=== PATIENT | male | born 1970 | race American Indian/Alaskan Native ===

== ENCOUNTER 2018-10-20 08:58 | Emergency (ER) | payer MEDICAID ==
[2018-10-20 08:59] VITALS: BMI 39.5
[2018-10-20 09:07] VITALS: BP 153/101; PULSE 84; RESP 20; TEMP 97.7; O2SAT 100
--- NOTE | 2018-10-20 09:12 | C.PDOC ---
History Of Present Illness 48 y/o homeless male brought to ED by EMS after police kicked him out of path station stating "he cannot stay here on thanks giving because he smells" as per EMS. Patient is ambulatory at ED and noted to have weeping from wrapped bilateral legs. Patient has no physical complaints at this time. Time Seen by Provider: 10/20/18 09:09 Chief Complaint (Nursing): Lower Extremity Problem/Injury History Per: Patient, EMS History/Exam Limitations: no limitations Onset/Duration Of Symptoms: Hrs Current Symptoms Are (Timing): Still Present Past Medical History Reviewed: Historical Data, Nursing Documentation, Vital Signs Vital Signs: Last Vital Signs Temp 97.7 F 10/20/18 09:06 Pulse 84 10/20/18 09:06 Resp 20 10/20/18 09:06 BP 153/101 H 10/20/18 09:06 Pulse Ox 100 10/20/18 09:06 - Medical History PMH: Depression (NOT DIAGNOSED), Diabetes, Schizophrenia Surgical History: No Surg Hx Family History: States: No Known Family Hx - Social History Hx Tobacco Use: No Hx Alcohol Use: Yes Hx Substance Use: No - Immunization History Hx Tetanus Toxoid Vaccination: No Hx Influenza Vaccination: No Hx Pneumococcal Vaccination: No Review Of Systems Constitutional: Negative for: Fever, Chills Cardiovascular: Negative for: Chest Pain Respiratory: Negative for: Cough, Shortness of Breath Gastrointestinal: Negative for: Nausea, Vomiting Musculoskeletal: Positive for: Leg Pain Skin: Negative for: Rash Psych: Negative for: Suicidal ideation, Withdrawal Physical Exam - Physical Exam Appears: Non-toxic, No Acute Distress, Unkempt Skin: Warm, Dry, No Rash, Other (wrap removed, right lower leg chronic granulated pink tissue with good blood flow. Left lower leg old scarring. No infection noted ) Head: Atraumatic, Normacephalic Eye(s): bilateral: Normal Inspection Oral Mucosa: Moist Neck: Normal ROM, Supple Cardiovascular: Rhythm Regular Respiratory: Normal Breath Sounds, No Rales, No Rhonchi, No Wheezing Gastrointestinal/Abdominal: Soft, No Tenderness, No Guarding, No Rebound Extremity: Normal ROM, Capillary Refill (<2 seconds), No Deformity, Swelling (mild on bilateral lower legs) Pulses: Left Dorsalis Pedis: Normal, Right Dorsalis Pedis: Normal Neurological/Psych: Oriented x3, Normal Speech, Other (no acute intox, calm ) ED Course And Treatment O2 Sat by Pulse Oximetry: 100 (RA) Pulse Ox Interpretation: Normal Disposition Counseled Patient/Family Regarding: Diagnosis, Need For Followup - Disposition Referrals: [facility] [Outside] [facility] [Outside] Disposition: HOME/ ROUTINE Disposition Time: 10:30 Condition: IMPROVED Instructions: Wound Care (DC) Forms: [employer] (Hungarian) - Clinical Impression Clinical Impression: Chronic wound of extremity, Homeless - Scribe Statement The provider has reviewed the documentation as recorded by the Scribmaverick Jaramillo All medical record entries made by the Germaineibmaverick were at my direction and personally dictated by me. I have reviewed the chart and agree that the record accurately reflects my personal performance of the history, physical exam, medical decision making, and the department course for this patient. I have also personally directed, reviewed, and agree with the discharge instructions and disposition.
== END 2018-10-20 13:22 | disposition home or self-care (01) ==
LOC: C.ER 08:58
DX: S80.921A Unspecified superficial injury of right lower leg, initial encounter (principal); X58.XXXA Exposure to other specified factors, initial encounter; Z59.0 Homelessness

== ENCOUNTER 2019-04-18 19:53 | Inpatient (IN) | payer MEDICAID ==
[2019-04-18 19:54] VITALS: BMI 38.2
--- NOTE | 2019-04-18 21:04 | C.PDOC ---
History Of Present Illness Homeless patient presents with severe malodorous legs, complaining of pain. States he has chronic venous stasis, as been seen here for similar complaints in the past , but never to this level of neglect. Upon undressing the patient, the wounds were infested with numerous maggots Time Seen by Provider: 04/18/19 21:03 Chief Complaint (Nursing): Abnormal Skin Integrity Past Medical History Reviewed: Historical Data, Nursing Documentation, Vital Signs Primary Care Provider: Non [facility] Provider, - Medical History PMH: Depression, Diabetes, Schizophrenia Family History: States: No Known Family Hx - Social History Hx Tobacco Use: No Hx Alcohol Use: Yes Hx Substance Use: No - Immunization History Hx Tetanus Toxoid Vaccination: No Hx Influenza Vaccination: Yes Hx Pneumococcal Vaccination: No Physical Exam - Physical Exam Appears: Non-toxic Skin: Warm, Dry, Other Head: Normacephalic Eye(s): bilateral: Normal Inspection Nose: Normal Oral Mucosa: Dry Teeth: Other (popor dentition) Neck: Supple Chest: Symmetrical Cardiovascular: Rhythm Regular Respiratory: No Rales, Rhonchi, No Wheezing Gastrointestinal/Abdominal: Soft, No Tenderness, Distention, Other (obese) Back: No CVA Tenderness Extremity: Tenderness, Pedal Edema, Other (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 b/l great toe nails avulsed. ) Extremity: Bilateral: Painful To Bear Weight Pulses: Left Dorsalis Pedis: Normal, Right Dorsalis Pedis: Normal Neurological/Psych: Oriented x3 Gait: With Assistance ED Course And Treatment - Laboratory Results Result Diagrams: 04/19/19 00:46 04/19/19 00:46 ECG: Interpreted By Me, Viewed By Me ECG Rhythm: Nonspecific Changes Pulse Ox Interpretation: Normal - Radiology CXR: Interpreted by Me, Viewed By Me CXR Interpretation: No: Infiltrates, Fracture, Pnemothorax Progress Note: spoke with podiatry. will come and see the pt. podiatry at bedside,. cleaned and dressed the wounds Disposition Discussed With : Db Knight Comment: accepted the pt onhis service and took over the care at 2AM Doctor Will See Patient In The: Hospital Counseled Patient/Family Regarding: Studies Performed, Diagnosis - Disposition Disposition: HOSPITALIZED Disposition Time: 21:03 Condition: GUARDED Forms: [employer] (Italian) - POA Present On Arrival: Poor Glycemic Control - Clinical Impression Clinical Impression: Skin ulcer, Cellulitis, Chronic wound of extremity, Venous stasis dermatitis of both lower extremities Decision To Admit - Pt Status Changed To: Hospital Disposition Of: Inpatient - Admit Certification Admit to Inpatient:: After my assessment, the patient will require hospitalization for at least two midnights. This is because of the severity of symptoms shown, intensity of services needed, and/or the medical risk in this patient being treated as an outpatient. - InPatient: Physician Admission Certification: I certify that this patient requires 2 or more midnights of care for the following reason:: After my assessment, the patient will require hospitalization for at least two midnights. This is because of the severity of symptoms shown, intensity of services needed, and/or the medical risk in this patient being treated as an outpatient. - . Bed Request Type: Regular Admitting Physician: Db Knight Patient Diagnosis: Skin ulcer, Cellulitis, Chronic wound of extremity, Venous stasis dermatitis of both lower extremities
[2019-04-18] MEDS ORDERED: Sodium Chloride 0.9% 1,000 ML IV ONE (22:41)
[2019-04-18] MEDS ORDERED: Piperacillin/Tazobact 3.375 GM in Sodium Chloride 100 ML IVPB STA (22:41)
[2019-04-19 00:52] LABS: VENOUS BLOOD GAS BASE EXCESS -1.2 mmol/L (0.0-2.0); VENOUS BLOOD GAS PCO2 51 mmHg (40-60); VENOUS BLOOD GAS PO2 21 mm/Hg (30-55); VENOUS BLOOD PH 7.31 (7.32-7.43)
[2019-04-19 00:58] LABS: BASO # 0.1 K/uL (0.0-0.2); BASO % 0.5 % (0.0-2.0); EOS # 0.2 K/uL (0.0-0.7); EOS % 1.5 % (0.0-4.0); HEMOGLOBIN 10.2 g/dL (12.0-18.0); LYMPH # 1.6 K/uL (1.0-4.3); LYMPH % 12.3 % (20.0-40.0); MEAN CORPUSCULAR HGB CONC 31.6 g/dL (33.0-37.0); MEAN PLATELET VOLUME 6.7 fL (7.2-11.7); MONO # 1.1 K/uL (0.0-0.8); MONO % 8.5 % (0.0-10.0); NEUT # 10.3 K/uL (1.8-7.0); NEUT % 77.2 % (50.0-75.0); RBC 4.23 Mil/uL (4.40-5.90); RED CELL DISTRIBUTION WIDTH 18.2 % (11.5-14.5); WHITE BLOOD COUNT 13.3 K/uL (4.8-10.8)
[2019-04-19] MEDS ORDERED: Piperacillin/Tazobact 3.375 gm 100 ML IVPB ONE (01:21)
[2019-04-19] MEDS ORDERED: Sodium Chloride 0.9% 1,000 ML ONE (01:21)
[2019-04-19 01:22] LABS: INR 1.5; PARTIAL THROMBOPLASTIN TIME 39.2 SECONDS (21-34); PROTHROMBIN TIME 16.8 SECONDS (9.7-12.2)
[2019-04-19 01:26] LABS: ALB/GLOB RATIO 0.7 (1.0-2.1); ALBUMIN 3.5 g/dL (3.5-5.0); AST/SGOT 21 U/L (17-59); BLOOD UREA NITROGEN 17 mg/dL (9-20); CALCIUM 8.6 mg/dl (8.6-10.4); GFR NON-AFRICAN AMERICAN 54
[2019-04-19 01:32] LABS: ALT/SGPT < 6 U/L (21-72)
--- NOTE | 2019-04-19 06:52 | CP.PCM.CON ---
History of Present Illness - History of Present Illness History of Present Illness: Podiatry consult note for Dr. Fountain, 48 y/o male homeless patient with PMHx of Diabetes, Depression and Schizophrenia was seen and evaluated in the [facility] ED for chronic Bilateral Lower Extremity Wounds with maggots as well as trench foot bilaterally. Patient states he has been to the ED several times for similar complaints, however, patient reports this is the worst it has been. Patient has history of chronic venous stasis and in the past has been treated with Unna Boots. Patient complains of a fever, but denies nausea, vomiting, shortness of breath, chest pain. Patient states he has a PMD, however, unable to remember the name. Patient is a poor historian and states he wants a Assistant Professor Of English for future care. Patient past medical and surgical history unclear. As per previous charting, patient is a diabetic. No known home medications Review of Systems - Review of Systems All systems: reviewed and no additional remarkable complaints except Review of Systems: As per HPI Past Patient History - Infectious Disease Hx of Infectious Diseases: None - Past Medical History & Family History Past Medical History?: Yes - Past Social History Smoking Status: Unknown If Ever Smoked - CARDIAC Hx Cardiac Disorders: No - PULMONARY Hx Respiratory Disorders: No - NEUROLOGICAL Hx Neurological Disorder: No - HEENT Hx HEENT Problems: No - RENAL Hx Chronic Kidney Disease: No - ENDOCRINE/METABOLIC Hx Endocrine Disorders: Yes Hx Diabetes Mellitus Type 2: Yes Other/Comment: DIABETES--denies - HEMATOLOGICAL/ONCOLOGICAL Hx Blood Disorders: No - INTEGUMENTARY Hx Dermatological Problems: Yes Hx Cellulitis: Yes (RLE) - MUSCULOSKELETAL/RHEUMATOLOGICAL Hx Musculoskeletal Disorders: No Hx Falls: No - GASTROINTESTINAL Hx Gastrointestinal Disorders: No - GENITOURINARY/GYNECOLOGICAL Hx Genitourinary Disorders: No - PSYCHIATRIC Hx Psychophysiologic Disorder: Yes Hx Depression: Yes Hx Schizophrenia: Yes Hx Substance Use: No - SURGICAL HISTORY Hx Surgeries: Yes Hx Amputation: Yes (R HAND) - ANESTHESIA Hx Anesthesia: Yes Hx Anesthesia Reactions: No Hx Malignant Hyperthermia: No Meds Allergies/Adverse Reactions: Allergies Allergy/AdvReac Type Severity Reaction Status Date / Time No Known Allergies Allergy Verified 04/18/19 20:14 - Medications Medications: Current Medications Heparin Sodium (Porcine) (Heparin) 5,000 units SC BID [facility] Piperacillin Sod/Tazobactam Sod (Zosyn 3.375 Gm Iv Premix) 3.375 gm in 50 mls @ 100 mls/hr IVPB Q8H [facility]; Protocol Ibuprofen (Motrin Tab) 600 mg PO Q6 PRN PRN Reason: Pain, moderate (4-7) Last Admin: 04/19/19 05:15 Dose: 600 mg Physical Exam - Constitutional Appears: Toxic, No Acute Distress, Unkempt - Head Exam Head Exam: ATRAUMATIC, NORMOCEPHALIC - ENT Exam ENT Exam: Mucous Membranes Dry - Extremities Exam Extremities exam: Positive for: joint swelling, pedal edema, tenderness Additional comments: Bilateral Lower Extremity exam VASC: DP and PT 1/4 faintly palpable likely secondary to the swelling, TG warm to warm, pitting pedal edema noted NEURO: grossly intact DERM: extensive chronic venous stasis ulcers noted circumferentially to bilateral lower extremities, ulcerations down to the subcutaneous layer with mixef fibrogranular base, positive malodor, no drainage, no purulence, no probe to bone, no tunneling or tracking, numerous maggots noted in the interspaced, with significant interdigital maceration, signs of trench foot also noted with m aceration to the feet and posterior heels Results - Vital Signs Recent Vital Signs: Last Vital Signs Temp 102 F H 04/19/19 04:21 Pulse 113 H 04/19/19 04:21 Resp 22 04/19/19 04:21 BP 127/68 04/19/19 04:21 Pulse Ox 97 04/19/19 04:21 - Labs Result Diagrams: 04/19/19 00:46 04/19/19 00:46 Labs: Laboratory Results - last 24 hr 04/19/19 04/19/19 04/19/19 00:37 00:46 00:46 WBC 13.3 H D RBC 4.23 L Hgb 10.2 L Hct 32.1 L MCV 76.0 L D MCH 24.0 L MCHC 31.6 L RDW 18.2 H Plt Count 686 H D MPV 6.7 L Neut % (Auto) 77.2 H Lymph % (Auto) 12.3 L [place] % (Auto) 8.5 Eos % (Auto) 1.5 Baso % (Auto) 0.5 Neut # (Auto) 10.3 H Lymph # (Auto) 1.6 [place] # (Auto) 1.1 H Eos # (Auto) 0.2 Baso # (Auto) 0.1 PT 16.8 H INR 1.5 APTT 39.2 H pO2 21 L VBG pH 7.31 L VBG pCO2 51 VBG HCO3 22.1 VBG Total CO2 27.3 VBG O2 Sat (Calc) 29.5 L VBG Base Excess -1.2 L VBG Potassium 4.0 Sodium 134.0 Chloride 101.0 Glucose 149 H Lactate 1.9 Potassium Carbon Dioxide Anion Gap BUN Creatinine Est GFR ( Amer) Est GFR (Non-Af Amer) Random Glucose Calcium Magnesium Total Bilirubin AST ALT Alkaline Phosphatase Total Protein Albumin Globulin Albumin/Globulin Ratio Venous Blood Potassium 4.0 04/19/19 00:46 WBC RBC Hgb Hct MCV MCH MCHC RDW Plt Count MPV Neut % (Auto) Lymph % (Auto) [place] % (Auto) Eos % (Auto) Baso % (Auto) Neut # (Auto) Lymph # (Auto) [place] # (Auto) Eos # (Auto) Baso # (Auto) PT INR APTT pO2 VBG pH VBG pCO2 VBG HCO3 VBG Total CO2 VBG O2 Sat (Calc) VBG Base Excess VBG Potassium Sodium 135 Chloride 98 Glucose Lactate Potassium 3.9 Carbon Dioxide 26 Anion Gap 15 BUN 17 Creatinine 1.4 Est GFR ( Amer) > 60 Est GFR (Non-Af Amer) 54 Random Glucose 151 H D Calcium 8.6 Magnesium 1.9 Total Bilirubin 0.4 AST 21 ALT < 6 L D Alkaline Phosphatase 129 H Total Protein 8.7 H Albumin 3.5 Globulin 5.3 H Albumin/Globulin Ratio 0.7 L Venous Blood Potassium Assessment & Plan - Assessment and Plan (Free Text) Assessment: 48 y/o male patient admitted for B/L chronic wounds with maggots and trench foot Plan: Patient was seen and evaluated Plan was discussed with Dr. Fountain Chart, labs reviewed- patient febrile overnight 102F, with positive leukocytosis WBC 13.3 Ordered Bilateral Tib/Fib and Foot X-rays Ordered Bilateral Wound Culture and Gram Stain HgA1c Pending ESR/CRP Pending Patient was decontaminated by ER staff with hydrogen peroxide to kill the maggots Podiatry saw patient and cleaned all wounds- dressed with betadine wet to dry at this time Patient to be admitted at this time Podiatry will follow patient while in house Thank you for the consult - Date & Time Date: 04/19/19 Time: 07:10
[2019-04-19 07:35] LABS: BASO % 0.4 % (0.0-2.0); EOS # 0.2 K/uL (0.0-0.7); EOS % 1.4 % (0.0-4.0); HEMOGLOBIN 8.4 g/dL (12.0-18.0); LYMPH # 1.2 K/uL (1.0-4.3); LYMPH % 9.7 % (20.0-40.0); MEAN CELL VOLUME 74.5 fL (80.0-94.0); MEAN CORPUSCULAR HEMOGLOBIN 24.3 pg (27.0-31.0); MEAN CORPUSCULAR HGB CONC 32.6 g/dL (33.0-37.0); MEAN PLATELET VOLUME 6.6 fL (7.2-11.7); MONO # 1.3 K/uL (0.0-0.8); MONO % 10.3 % (0.0-10.0); NEUT # 9.6 K/uL (1.8-7.0); NEUT % 78.2 % (50.0-75.0); RBC 3.46 Mil/uL (4.40-5.90); WHITE BLOOD COUNT 12.3 K/uL (4.8-10.8)
[2019-04-19 07:41] LABS: PLATELET COUNT 560 K/uL (130-400)
[2019-04-19 07:52] LABS: ALB/GLOB RATIO 0.7 (1.0-2.1); ALBUMIN 2.7 g/dL (3.5-5.0); ALT/SGPT < 6 U/L (21-72); AST/SGOT 14 U/L (17-59); BLOOD UREA NITROGEN 16 mg/dL (9-20); CALCIUM 7.6 mg/dl (8.6-10.4); GFR NON-AFRICAN AMERICAN 59
[2019-04-19 09:11] LABS: BASOPHIL 1 % (0-2); LYMPHOCYTE 8 % (20-40); MONOCYTE 9 % (0-10); NEUTROPHIL 82 % (50-75); PLATELET ESTIMATE INCREASED (NORMAL); TOTAL CELLS COUNTED 100
[2019-04-19 09:12] LABS: ANISOCYTOSIS SLIGHT; HYPOCHROMIC SLIGHT; OVALOCYTES SLIGHT; POIKILOCYTOSIS SLIGHT
--- NOTE | 2019-04-19 09:44 | RAD ---
Date of service: 04/18/2019 HISTORY: Shortness of breath COMPARISON: None available. TECHNIQUE: 1 view obtained. FINDINGS: LUNGS: No active pulmonary disease. PLEURA: No significant pleural effusion identified, no pneumothorax apparent. CARDIOVASCULAR: No aortic atherosclerotic calcification present. Normal cardiac size. No pulmonary vascular congestion. OSSEOUS STRUCTURES: No significant abnormalities. VISUALIZED UPPER ABDOMEN: Normal. OTHER FINDINGS: None. IMPRESSION: No active disease.
[2019-04-19] MEDS: Dakin's Topical 0.25%-Half Strength (480 ml) TOP SCH (10:12)
[2019-04-19] MEDS: Piperacill/Tazo 3.375gm in Dex 3.375 GM/50 ML BAG IVPB SCH ×2 (10:12→17:26)
--- NOTE | 2019-04-19 10:18 | RAD ---
Date of service: 04/19/2019 PROCEDURE: Bilateral Feet Radiographs. HISTORY: r/o osteo COMPARISON: None. TECHNIQUE: 6 views obtained. FINDINGS: BONES: Right Foot: No fracture. Pes planus deformity. No osseous erosion or periosteal reaction. Left Foot: Pes planus. Plantar calcaneal spur. Talonavicular osteoarthritis. There is erosion of the 1st distal phalanx with a cutaneous ulcer immediately adjacent, suggestive of osteomyelitis. Consider correlation with magnetic resonance imaging. No other osseous erosion is appreciated elsewhere. No periosteal reaction. JOINTS: Right Foot: Talonavicular osteoarthritis. Left Foot: Normal. No osteoarthritis. SOFT TISSUES: Right Foot: Extensive soft tissue swelling seen about the right foot. Likely indicating cellulitis. Small cutaneous ulcer along the medial aspect of the 1st distal phalanx. Cutaneous ulcer adjacent to the medial aspect of the 2nd middle phalanx. Left Foot: Cutaneous ulcer at the distal aspect of the 1st distal phalanx immediately adjacent to osseous erosion of the distal phalanx. There is extensive diffuse soft tissue swelling likely representing cellulitis. Correlate clinically. OTHER FINDINGS: None. IMPRESSION: Erosion of the right 1st distal phalanx suggestive of osteomyelitis. Correlate clinically. No evidence of osteomyelitis elsewhere. No fracture. Probable bilateral cellulitis as above. Cutaneous ulcers as above.
--- NOTE | 2019-04-19 11:07 | CP.PCM.HP ---
History of Present Illness - History of Present Illness History of Present Illness: Homeless patient presents with severe malodorous legs, complaining of pain. States he has chronic venous stasis, as been seen here for similar complaints in the past THE WOUND ALSO HAD MAGGOTS AND KILLED BY H2O2 BOTH FEET APPEARS TRENCH FEET Present on Admission - Present on Admission Any Indicators Present on Admission: No Review of Systems - Review of Systems All systems: reviewed and no additional remarkable complaints except Past Patient History - Infectious Disease Hx of Infectious Diseases: None - Past Medical History & Family History Past Medical History?: Yes - Past Social History Smoking Status: Unknown If Ever Smoked - CARDIAC Hx Cardiac Disorders: No - PULMONARY Hx Respiratory Disorders: No - NEUROLOGICAL Hx Neurological Disorder: No - HEENT Hx HEENT Problems: No - RENAL Hx Chronic Kidney Disease: No - ENDOCRINE/METABOLIC Hx Endocrine Disorders: Yes Hx Diabetes Mellitus Type 2: Yes Other/Comment: DIABETES--denies - HEMATOLOGICAL/ONCOLOGICAL Hx Blood Disorders: No - INTEGUMENTARY Hx Dermatological Problems: Yes Hx Cellulitis: Yes (RLE) - MUSCULOSKELETAL/RHEUMATOLOGICAL Hx Musculoskeletal Disorders: No Hx Falls: No - GASTROINTESTINAL Hx Gastrointestinal Disorders: No - GENITOURINARY/GYNECOLOGICAL Hx Genitourinary Disorders: No - PSYCHIATRIC Hx Psychophysiologic Disorder: Yes Hx Depression: Yes Hx Schizophrenia: Yes Hx Substance Use: No - SURGICAL HISTORY Hx Surgeries: Yes Hx Amputation: Yes (R HAND) - ANESTHESIA Hx Anesthesia: Yes Hx Anesthesia Reactions: No Hx Malignant Hyperthermia: No Meds Allergies/Adverse Reactions: Allergies Allergy/AdvReac Type Severity Reaction Status Date / Time No Known Allergies Allergy Verified 04/18/19 20:14 Physical Exam - Constitutional Appears: Well - Head Exam Head Exam: ATRAUMATIC, NORMAL INSPECTION, NORMOCEPHALIC - Eye Exam Eye Exam: EOMI, Normal appearance, PERRL - ENT Exam ENT Exam: Mucous Membranes Moist, Normal Exam - Neck Exam Neck exam: Positive for: Normal Inspection - Respiratory Exam Respiratory Exam: Clear to Auscultation Bilateral, NORMAL BREATHING PATTERN - Cardiovascular Exam Cardiovascular Exam: REGULAR RHYTHM - Extremities Exam Extremities exam: Positive for: full ROM (BILATERAL CELLULITIS WITH SUP ULCERATION, VENOUS STASIS AND TRECH FEET ) Results - Vital Signs Recent Vital Signs: Last Vital Signs Temp 97.9 F 04/19/19 07:00 Pulse 99 H 04/19/19 07:00 Resp 20 04/19/19 07:00 BP 100/59 L 04/19/19 07:00 Pulse Ox 97 04/19/19 07:00 - Labs Result Diagrams: 04/19/19 06:51 04/19/19 06:51 Labs: Laboratory Results - last 24 hr 04/19/19 04/19/19 04/19/19 00:37 00:46 00:46 WBC 13.3 H D RBC 4.23 L Hgb 10.2 L Hct 32.1 L MCV 76.0 L D MCH 24.0 L MCHC 31.6 L RDW 18.2 H Plt Count 686 H D MPV 6.7 L Neut % (Auto) 77.2 H Lymph % (Auto) 12.3 L [place] % (Auto) 8.5 Eos % (Auto) 1.5 Baso % (Auto) 0.5 Neut # (Auto) 10.3 H Lymph # (Auto) 1.6 [place] # (Auto) 1.1 H Eos # (Auto) 0.2 Baso # (Auto) 0.1 Neutrophils % (Manual) Lymphocytes % (Manual) Monocytes % (Manual) Basophils % (Manual) Platelet Estimate Hypochromasia (manual) Poikilocytosis (manual Anisocytosis (manual) Ovalocytes PT 16.8 H INR 1.5 APTT 39.2 H pO2 21 L VBG pH 7.31 L VBG pCO2 51 VBG HCO3 22.1 VBG Total CO2 27.3 VBG O2 Sat (Calc) 29.5 L VBG Base Excess -1.2 L VBG Potassium 4.0 Sodium 134.0 Chloride 101.0 Glucose 149 H Lactate 1.9 Potassium Carbon Dioxide Anion Gap BUN Creatinine Est GFR ( Amer) Est GFR (Non-Af Amer) POC Glucose (mg/dL) Random Glucose Calcium Magnesium Total Bilirubin AST ALT Alkaline Phosphatase Total Protein Albumin Globulin Albumin/Globulin Ratio Venous Blood Potassium 4.0 04/19/19 04/19/19 04/19/19 00:46 06:50 06:51 WBC 12.3 H RBC 3.46 L Hgb 8.4 L Hct 25.8 L MCV 74.5 L MCH 24.3 L MCHC 32.6 L RDW 18.0 H Plt Count 560 H D MPV 6.6 L Neut % (Auto) 78.2 H Lymph % (Auto) 9.7 L [place] % (Auto) 10.3 H Eos % (Auto) 1.4 Baso % (Auto) 0.4 Neut # (Auto) 9.6 H Lymph # (Auto) 1.2 [place] # (Auto) 1.3 H Eos # (Auto) 0.2 Baso # (Auto) 0.0 Neutrophils % (Manual) 82 H Lymphocytes % (Manual) 8 L Monocytes % (Manual) 9 Basophils % (Manual) 1 Platelet Estimate Increased H Hypochromasia (manual) Slight Poikilocytosis (manual Slight Anisocytosis (manual) Slight Ovalocytes Slight PT INR APTT pO2 VBG pH VBG pCO2 VBG HCO3 VBG Total CO2 VBG O2 Sat (Calc) VBG Base Excess VBG Potassium Sodium 135 Chloride 98 Glucose Lactate Potassium 3.9 Carbon Dioxide 26 Anion Gap 15 BUN 17 Creatinine 1.4 Est GFR ( Amer) > 60 Est GFR (Non-Af Amer) 54 POC Glucose (mg/dL) 189 H Random Glucose 151 H D Calcium 8.6 Magnesium 1.9 Total Bilirubin 0.4 AST 21 ALT < 6 L D Alkaline Phosphatase 129 H Total Protein 8.7 H Albumin 3.5 Globulin 5.3 H Albumin/Globulin Ratio 0.7 L Venous Blood Potassium 04/19/19 06:51 WBC RBC Hgb Hct MCV MCH MCHC RDW Plt Count MPV Neut % (Auto) Lymph % (Auto) [place] % (Auto) Eos % (Auto) Baso % (Auto) Neut # (Auto) Lymph # (Auto) [place] # (Auto) Eos # (Auto) Baso # (Auto) Neutrophils % (Manual) Lymphocytes % (Manual) Monocytes % (Manual) Basophils % (Manual) Platelet Estimate Hypochromasia (manual) Poikilocytosis (manual Anisocytosis (manual) Ovalocytes PT INR APTT pO2 VBG pH VBG pCO2 VBG HCO3 VBG Total CO2 VBG O2 Sat (Calc) VBG Base Excess VBG Potassium Sodium 133 Chloride 104 Glucose Lactate Potassium 4.3 Carbon Dioxide 22 Anion Gap 12 BUN 16 Creatinine 1.3 Est GFR ( Amer) > 60 Est GFR (Non-Af Amer) 59 POC Glucose (mg/dL) Random Glucose 171 H Calcium 7.6 L Magnesium Total Bilirubin 0.3 AST 14 L D ALT < 6 L Alkaline Phosphatase 94 Total Protein 6.7 Albumin 2.7 L D Globulin 4.0 H Albumin/Globulin Ratio 0.7 L Venous Blood Potassium Assessment & Plan (1) Trench feet Status: Acute (2) Cellulitis Status: Acute (3) Chronic wound of extremity Status: Acute (4) Venous stasis dermatitis of both lower extremities Status: Acute
--- NOTE | 2019-04-19 14:55 | RAD ---
Date of service: 04/19/2019 PROCEDURE: Radiographs of the bilateral Tibiae and Fibulae. HISTORY: r/o osteo COMPARISON: Bilateral feet 04/19/2019 TECHNIQUE: Frontal and lateral views obtained. 4 views obtained. FINDINGS: BONES: RIGHT TIBIA: There is a long segment of the mid to distal right tibia with osseous erosion and extensive periosteal reaction, over a distance of approximately 12 cm. This does not display characteristic findings of chronic osteomyelitis, however, and could represent severe acute osteomyelitis. There is large overlying soft tissue ulceration noted. There is no osseous fracture. LEFT TIBIA: No fracture or destructive lesion. JOINT SPACES: RIGHT TIBIA: Normal. LEFT TIBIA: Normal. SOFT TISSUES: RIGHT TIBIA: Large soft tissue ulceration overlying the pretibial soft tissues at the level of the osseous erosion described above. LEFT TIBIA: Normal. OTHER FINDINGS: None. IMPRESSION: Long segment of osseous erosion and extensive periosteal reaction involving the mid to distal right tibial diaphysis with large overlying soft tissue ulceration. Consistent with extensive acute osteomyelitis.
[2019-04-19 18:11] LABS: ERYTHROCYTE SEDIMENTATION RATE 110 mm/hr (0-15)
[2019-04-19 20:18] LABS: SQUAMOUS EPITHIAL 2 /hpf (0-5); URINE BACTERIA OCC (<OCC); URINE BILIRUBIN NEGATIVE (NEGATIVE); URINE BLOOD 2+ (NEGATIVE); URINE CLARITY Hazy (Clear); URINE COLOR Yellow (YELLOW); URINE GLUCOSE (UA) NORMAL (Normal); URINE LEUKOCYTE ESTERASE 1+ Leu/uL (Negative); URINE PROTEIN 1+ mg/dL (NEGATIVE); URINE UROBILINOGEN NORMAL mg/dL (0.2-1.0)
[2019-04-20] MEDS: Piperacill/Tazo 3.375gm in Dex 3.375 GM/50 ML BAG IVPB SCH ×3 (00:37→19:48)
[2019-04-20 08:30] LABS: BASO % 0.6 % (0.0-2.0); EOS # 0.3 K/uL (0.0-0.7); EOS % 3.5 % (0.0-4.0); HEMOGLOBIN 8.1 g/dL (12.0-18.0); LYMPH # 1.1 K/uL (1.0-4.3); LYMPH % 14.2 % (20.0-40.0); MEAN CELL VOLUME 74.6 fL (80.0-94.0); MEAN CORPUSCULAR HGB CONC 32.1 g/dL (33.0-37.0); MEAN PLATELET VOLUME 6.7 fL (7.2-11.7); MONO # 0.7 K/uL (0.0-0.8); MONO % 9.2 % (0.0-10.0); NEUT # 5.4 K/uL (1.8-7.0); NEUT % 72.5 % (50.0-75.0); RBC 3.37 Mil/uL (4.40-5.90); RED CELL DISTRIBUTION WIDTH 17.8 % (11.5-14.5); WHITE BLOOD COUNT 7.5 K/uL (4.8-10.8)
[2019-04-20 08:33] LABS: ALB/GLOB RATIO 0.7 (1.0-2.1); ALBUMIN 2.6 g/dL (3.5-5.0); ALT/SGPT < 6 U/L (21-72); AST/SGOT 11 U/L (17-59); BLOOD UREA NITROGEN 14 mg/dL (9-20); CALCIUM 7.5 mg/dl (8.6-10.4); GFR NON-AFRICAN AMERICAN > 60
[2019-04-20] MEDS: Dakin's Topical 0.25%-Half Strength (480 ml) TOP SCH (09:20)
--- NOTE | 2019-04-20 11:17 | CP.PCM.PN ---
Subjective - Date & Time of Evaluation Date of Evaluation: 04/20/19 Time of Evaluation: 11:16 - Subjective Subjective: FOUL SMELLING JOELLE SUP ULCERS SEC TO STATIS DERMATITIS C/S PENDING CONT LOCAL WOUND CARE AND IV AB Objective - Vital Signs/Intake and Output Vital Signs (last 24 hours): Temp Pulse Resp BP Pulse Ox 98.0 F 80 20 115/64 98 04/20/19 08:09 04/20/19 08:09 04/20/19 08:09 04/20/19 08:09 04/20/19 08:09 Intake and Output: 04/19/19 04/20/19 23:59 11:59 Intake Total 270 Output Total 100 Balance 170 - Medications Medications: Current Medications Heparin Sodium (Porcine) (Heparin) 5,000 units SC BID [facility] Last Admin: 04/19/19 17:27 Dose: Not Given Piperacillin Sod/Tazobactam Sod (Zosyn 3.375 Gm Iv Premix) 3.375 gm in 50 mls @ 100 mls/hr IVPB Q8H [facility]; Protocol Last Admin: 04/20/19 09:19 Dose: 100 mls/hr Ibuprofen (Motrin Tab) 600 mg PO Q6 PRN PRN Reason: Pain, moderate (4-7) Last Admin: 04/19/19 21:15 Dose: 600 mg Sodium Hypochlorite (Dakins Solution 0.25%) 0 ml TOP DAILY [facility] Last Admin: 04/20/19 09:20 Dose: Not Given - Labs Labs: 04/20/19 08:20 04/20/19 08:05 PT 16.8 SECONDS (9.7-12.2) H 04/19/19 00:46 INR 1.5 04/19/19 00:46 APTT 39.2 SECONDS (21-34) H 04/19/19 00:46 Assessment and Plan (1) Trench feet Status: Acute (2) Cellulitis Status: Acute (3) Chronic wound of extremity Status: Acute (4) Venous stasis dermatitis of both lower extremities Status: Acute
--- NOTE | 2019-04-20 12:14 | CP.PCM.CON ---
History of Present Illness - History of Present Illness History of Present Illness: INFECTIOUS DISEASE CONSULT. HPI: 48 year old Homeless patient presents with severe malodorous legs, complaining of pain. States he has chronic venous stasis, has been seen here for similar complaints in the past THE WOUND ALSO HAD MAGGOTS AND KILLED BY H2O2 BOTH FEET APPEARS TRENCH FEET. Denies fever or chills. PMH: Depression, Diabetes, Schizophrenia Family History: States: No Known Family Hx - Social History Hx Tobacco Use: No Hx Alcohol Use: Yes Hx Substance Use: No - Immunization History Hx Tetanus Toxoid Vaccination: No Hx Influenza Vaccination: Yes Hx Pneumococcal Vaccination: No ALLERGY: NKA Review of Systems - Review of Systems All systems: reviewed and no additional remarkable complaints except ( PER HPI.) Past Patient History - Infectious Disease Hx of Infectious Diseases: None - Past Medical History & Family History Past Medical History?: Yes - Past Social History Smoking Status: Unknown If Ever Smoked - CARDIAC Hx Pacemaker: No - PULMONARY Hx Respiratory Disorders: No - NEUROLOGICAL Hx Neurological Disorder: No - HEENT Hx HEENT Problems: No - RENAL Hx Chronic Kidney Disease: No - ENDOCRINE/METABOLIC Hx Endocrine Disorders: Yes Hx Diabetes Mellitus Type 2: Yes Other/Comment: DIABETES--denies - HEMATOLOGICAL/ONCOLOGICAL Hx Cancer: No - INTEGUMENTARY Hx Dermatological Problems: Yes Hx Cellulitis: Yes (RLE) - MUSCULOSKELETAL/RHEUMATOLOGICAL Hx Musculoskeletal Disorders: No Hx Falls: No - GASTROINTESTINAL Hx Gastrointestinal Disorders: No - GENITOURINARY/GYNECOLOGICAL Hx Genitourinary Disorders: No - PSYCHIATRIC Hx Psychophysiologic Disorder: Yes Hx Depression: Yes Hx Schizophrenia: Yes Hx Substance Use: No - SURGICAL HISTORY Hx Mastectomy: No - ANESTHESIA Hx Anesthesia: Yes Hx Anesthesia Reactions: No Hx Malignant Hyperthermia: No Meds Allergies/Adverse Reactions: Allergies Allergy/AdvReac Type Severity Reaction Status Date / Time No Known Allergies Allergy Verified 04/18/19 20:14 - Medications Medications: Current Medications Heparin Sodium (Porcine) (Heparin) 5,000 units SC BID [facility] Last Admin: 04/19/19 17:27 Dose: Not Given Piperacillin Sod/Tazobactam Sod (Zosyn 3.375 Gm Iv Premix) 3.375 gm in 50 mls @ 100 mls/hr IVPB Q8H [facility]; Protocol Last Admin: 04/20/19 09:19 Dose: 100 mls/hr Vancomycin HCl 1.5 gm/ Sodium (Chloride) 500 mls @ 133.333 mls/hr IVPB Q12H [facility]; Protocol Stop: 04/25/19 14:01 Ibuprofen (Motrin Tab) 600 mg PO Q6 PRN PRN Reason: Pain, moderate (4-7) Last Admin: 04/19/19 21:15 Dose: 600 mg Sodium Hypochlorite (Dakins Solution 0.25%) 0 ml TOP DAILY [facility] Last Admin: 04/20/19 09:20 Dose: Not Given Physical Exam - Constitutional Appears: No Acute Distress - Head Exam Head Exam: NORMAL INSPECTION - Eye Exam Eye Exam: EOMI, PERRL - ENT Exam ENT Exam: Normal Oropharynx - Neck Exam Neck exam: Positive for: Normal Inspection - Respiratory Exam Respiratory Exam: Clear to Auscultation Bilateral, NORMAL BREATHING PATTERN - Cardiovascular Exam Cardiovascular Exam: REGULAR RHYTHM, +S1, +S2 - GI/Abdominal Exam GI & Abdominal Exam: Normal Bowel Sounds, Soft. absent: Tenderness - Extremities Exam Extremities exam: Positive for: pedal edema. Negative for: calf tenderness - Neurological Exam Neurological exam: Alert, CN II-XII Intact, Reflexes Normal - Psychiatric Exam Psychiatric exam: Normal Mood - Skin Skin Exam: Warm (DERM: extensive chronic venous stasis ulcers noted circumferentially to bilateral lower extremities, ulcerations down to the subc utaneous layer with mixef fibrogranular base, positive malodor, no drainage, no purulence, no probe to bone, no tunneling or tracking, numerous maggots noted in the interspaced, with significant interdigital maceration, signs of trench foot also noted with maceration to the feet and posterior heels) Results - Vital Signs Recent Vital Signs: Last Vital Signs Temp 98.0 F 04/20/19 08:09 Pulse 80 04/20/19 08:09 Resp 20 04/20/19 08:09 BP 115/64 04/20/19 08:09 Pulse Ox 98 04/20/19 08:09 - Labs Result Diagrams: 04/20/19 08:20 04/20/19 08:05 Labs: Laboratory Results - last 24 hr 04/19/19 04/19/19 04/19/19 06:30 06:51 20:08 WBC 12.3 H RBC 3.46 L Hgb 8.4 L Hct 25.8 L MCV 74.5 L MCH 24.3 L MCHC 32.6 L RDW 18.0 H Plt Count 560 H D MPV 6.6 L Neut % (Auto) 78.2 H Lymph % (Auto) 9.7 L Smyth % (Auto) 10.3 H Eos % (Auto) 1.4 Baso % (Auto) 0.4 Neut # (Auto) 9.6 H Lymph # (Auto) 1.2 Smyth # (Auto) 1.3 H Eos # (Auto) 0.2 Baso # (Auto) 0.0 Neutrophils % (Manual) 82 H Lymphocytes % (Manual) 8 L Monocytes % (Manual) 9 Basophils % (Manual) 1 Platelet Estimate Increased H Hypochromasia (manual) Slight Poikilocytosis (manual Slight Anisocytosis (manual) Slight Ovalocytes Slight ESR 110 H Sodium Potassium Chloride Carbon Dioxide Anion Gap BUN Creatinine Est GFR ( Amer) Est GFR (Non-Af Amer) Random Glucose Calcium Total Bilirubin AST ALT Alkaline Phosphatase C-React Prot High Sens > 15.00 H Total Protein Albumin Globulin Albumin/Globulin Ratio Urine Color Yellow Urine Clarity Hazy Urine pH 5.0 Ur Specific [place] 1.020 Urine Protein 1+ H Urine Glucose (UA) Normal Urine Ketones Negative Urine Blood 2+ H Urine Nitrate Negative Urine Bilirubin Negative Urine Urobilinogen Normal Ur Leukocyte Esterase 1+ H Urine WBC (Auto) 3 Urine RBC (Auto) 7 H Ur Squamous Epith Cells 2 Urine Bacteria Occ H 04/20/19 04/20/19 08:05 08:20 WBC 7.5 RBC 3.37 L Hgb 8.1 L Hct 25.1 L MCV 74.6 L MCH 24.0 L MCHC 32.1 L RDW 17.8 H Plt Count 483 H MPV 6.7 L Neut % (Auto) 72.5 Lymph % (Auto) 14.2 L Smyth % (Auto) 9.2 Eos % (Auto) 3.5 Baso % (Auto) 0.6 Neut # (Auto) 5.4 Lymph # (Auto) 1.1 Smyth # (Auto) 0.7 Eos # (Auto) 0.3 Baso # (Auto) 0.0 Neutrophils % (Manual) Lymphocytes % (Manual) Monocytes % (Manual) Basophils % (Manual) Platelet Estimate Hypochromasia (manual) Poikilocytosis (manual Anisocytosis (manual) Ovalocytes ESR Sodium 135 Potassium 4.0 Chloride 103 Carbon Dioxide 26 Anion Gap 11 BUN 14 Creatinine 0.9 Est GFR ( Amer) > 60 Est GFR (Non-Af Amer) > 60 Random Glucose 149 H Calcium 7.5 L Total Bilirubin 0.2 AST 11 L D ALT < 6 L Alkaline Phosphatase 89 C-React Prot High Sens Total Protein 6.5 Albumin 2.6 L Globulin 3.9 Albumin/Globulin Ratio 0.7 L Urine Color Urine Clarity Urine pH Ur Specific [place] Urine Protein Urine Glucose (UA) Urine Ketones Urine Blood Urine Nitrate Urine Bilirubin Urine Urobilinogen Ur Leukocyte Esterase Urine WBC (Auto) Urine RBC (Auto) Ur Squamous Epith Cells Urine Bacteria Assessment & Plan (1) Cellulitis Status: Acute (2) Infestation by maggots Status: Acute (3) Chronic wound of extremity Status: Acute (4) Trench feet Status: Acute (5) Diabetes Status: Acute - Assessment and Plan (Free Text) Plan: PLAN; PANCULTURE MRSA SCREEN. CONTINUE IV ZOSYN 3.375MG IVPB Q 8HRLY.04/18/19 ADD IV VANCOMYCIN 1500MG IVPB Q 12HRLY 04/20/19. LWC PER PODIATRY WITH H2O2 /DAKINS SOLUTION . CASE DISCUSSED WITH STORE PL[facility]NER. MS [facility]NAW[facility].
--- NOTE | 2019-04-20 13:21 | CP.PCM.PN ---
Subjective - Date & Time of Evaluation Date of Evaluation: 04/20/19 Time of Evaluation: 11:35 - Subjective Subjective: Podiatry Progress Note- Dr. Marques 48 y/o homeless male seen at bedside today for bilateral lower extremity venous stasis ulcerations with maggots. Pt denies pain in the legs but says he still feels crawling underneath the bandages. Denies F/C/N/V/CP/SOB Objective - Vital Signs/Intake and Output Vital Signs (last 24 hours): Temp Pulse Resp BP Pulse Ox 98.0 F 80 20 115/64 98 04/20/19 08:09 04/20/19 08:09 04/20/19 08:09 04/20/19 08:09 04/20/19 08:09 Intake and Output: 04/20/19 04/20/19 06:59 18:59 Intake Total 270 Output Total 100 Balance 170 - Medications Medications: Current Medications Heparin Sodium (Porcine) (Heparin) 5,000 units SC BID [facility] Last Admin: 04/19/19 17:27 Dose: Not Given Piperacillin Sod/Tazobactam Sod (Zosyn 3.375 Gm Iv Premix) 3.375 gm in 50 mls @ 100 mls/hr IVPB Q8H [facility]; Protocol Last Admin: 04/20/19 09:19 Dose: 100 mls/hr Vancomycin HCl 1.5 gm/ Sodium (Chloride) 500 mls @ 133.333 mls/hr IVPB Q12H [facility]; Protocol Stop: 04/25/19 14:01 Ibuprofen (Motrin Tab) 600 mg PO Q6 PRN PRN Reason: Pain, moderate (4-7) Last Admin: 04/19/19 21:15 Dose: 600 mg Sodium Hypochlorite (Dakins Solution 0.25%) 0 ml TOP DAILY [facility] Last Admin: 04/20/19 09:20 Dose: Not Given - Labs Labs: 04/20/19 08:20 04/20/19 08:05 PT 16.8 SECONDS (9.7-12.2) H 04/19/19 00:46 INR 1.5 04/19/19 00:46 APTT 39.2 SECONDS (21-34) H 04/19/19 00:46 - Constitutional Appears: Well, Non-toxic, No Acute Distress - Extremities Exam Additional comments: Lower extremity focused exam: VASC: DP and PT pulses are 1/4 B/L, TG warm to warm, pitting pedal edema noted B/L from tibial tuberosity to digits NEURO: protective sensation grossly intact DERM: extensive chronic venous stasis ulcers noted circumferentially to bilateral lower extremities. Ulcerations extend down to the subcutaneous layer with mixed fibrogranular wound base, positive malodor, no drainage, no purulence, no probe to bone, no tunneling or tracking noted. Numerous maggots noted in digital interspaces and within wound bed, with significant interdigital macerationa and signs of trench foot also noted with maceration to the feet and posterior heels Ortho: no tenderness to palpation of bilateral lower extremities - Neurological Exam Neurological Exam: Alert, Awake, Oriented x3 - Psychiatric Exam Psychiatric exam: Normal Affect, Normal Mood Assessment and Plan - Assessment and Plan (Free Text) Assessment: 48 y/o male with bilateral lower extremity chronic venous stasis ulcerations, infested with maggots Plan Patient seen and evaluated at bedside Discussed plan with Dr. Marques Bilateral LE dressings removed, revealing hundreds of maggots present in wound bed Legs extensively washed with hydrogen peroxide and left open to air Nursing to perform peroxide soaks Q2H and apply Dakins, DSD tonight after legs have been decontaminated RLE xray reveals acute periosteal rxn of mid to distal tibia, consistent with acute osteomyelitis RLE MRI ordered, pending Wound cultures B/L lower extremities pending ESR 110, CRP >15; suspicious for acute process Await results of MRI prior to any surgical planning/intervention Will continue local wound care at this time Will continue to follow patient while in house
[2019-04-20] MEDS: Vancomycin 1.5 GM in Sodium Chloride 0.9% 500 ML IVPB SCH (14:52)
[2019-04-21] MEDS: Piperacill/Tazo 3.375gm in Dex 3.375 GM/50 ML BAG IVPB SCH ×3 (01:16→16:30)
[2019-04-21] MEDS: Vancomycin 1.5 GM in Sodium Chloride 0.9% 500 ML IVPB SCH ×3 (01:17→17:00)
[2019-04-21 08:06] LABS: BASO # 0.1 K/uL (0.0-0.2); BASO % 0.9 % (0.0-2.0); EOS # 0.3 K/uL (0.0-0.7); EOS % 5.4 % (0.0-4.0); HEMOGLOBIN 7.9 g/dL (12.0-18.0); LYMPH # 1.2 K/uL (1.0-4.3); LYMPH % 20.3 % (20.0-40.0); MEAN CELL VOLUME 74.8 fL (80.0-94.0); MEAN CORPUSCULAR HEMOGLOBIN 24.3 pg (27.0-31.0); MEAN CORPUSCULAR HGB CONC 32.5 g/dL (33.0-37.0); MEAN PLATELET VOLUME 6.2 fL (7.2-11.7); MONO # 0.6 K/uL (0.0-0.8); MONO % 10.8 % (0.0-10.0); NEUT # 3.6 K/uL (1.8-7.0); NEUT % 62.6 % (50.0-75.0); RBC 3.27 Mil/uL (4.40-5.90); RED CELL DISTRIBUTION WIDTH 17.8 % (11.5-14.5); WHITE BLOOD COUNT 5.7 K/uL (4.8-10.8)
[2019-04-21 08:20] LABS: BLOOD UREA NITROGEN 10 mg/dL (9-20); CALCIUM 7.6 mg/dl (8.6-10.4); GFR NON-AFRICAN AMERICAN > 60
[2019-04-21] MEDS: Dakin's Topical 0.25%-Half Strength (480 ml) TOP SCH (10:06)
--- NOTE | 2019-04-21 10:55 | CP.PCM.PN ---
Subjective - Date & Time of Evaluation Date of Evaluation: 04/21/19 Time of Evaluation: 10:55 - Subjective Subjective: FOUL SMELLING JOELLE SUP ULCERS SEC TO STATIS DERMATITIS C/S PENDING CONT LOCAL WOUND CARE AND IV AB REFUSED MRI Objective - Vital Signs/Intake and Output Vital Signs (last 24 hours): Temp Pulse Resp BP Pulse Ox 98.5 F 87 20 134/83 99 04/21/19 07:55 04/21/19 07:55 04/21/19 07:55 04/21/19 07:55 04/21/19 07:55 Intake and Output: 04/20/19 04/21/19 23:59 11:59 Intake Total 1780 Output Total 1650 400 Balance 130 -400 - Medications Medications: Current Medications Heparin Sodium (Porcine) (Heparin) 5,000 units SC BID [facility] Last Admin: 04/19/19 17:27 Dose: Not Given Piperacillin Sod/Tazobactam Sod (Zosyn 3.375 Gm Iv Premix) 3.375 gm in 50 mls @ 100 mls/hr IVPB Q8H [facility]; Protocol Last Admin: 04/21/19 10:07 Dose: 100 mls/hr Vancomycin HCl 1.5 gm/ Sodium (Chloride) 500 mls @ 133.333 mls/hr IVPB Q12H [facility]; Protocol Stop: 04/25/19 14:01 Last Admin: 04/21/19 01:17 Dose: 133.333 mls/hr Ibuprofen (Motrin Tab) 600 mg PO Q6 PRN PRN Reason: Pain, moderate (4-7) Last Admin: 04/19/19 21:15 Dose: 600 mg Sodium Hypochlorite (Dakins Solution 0.25%) 0 ml TOP DAILY [facility] Last Admin: 04/21/19 10:06 Dose: Not Given - Labs Labs: 04/21/19 07:59 04/21/19 07:59 PT 16.8 SECONDS (9.7-12.2) H 04/19/19 00:46 INR 1.5 04/19/19 00:46 APTT 39.2 SECONDS (21-34) H 04/19/19 00:46 Assessment and Plan (1) Trench feet Status: Acute (2) Cellulitis Status: Acute (3) Chronic wound of extremity Status: Acute (4) Venous stasis dermatitis of both lower extremities Status: Acute
[2019-04-21] MEDS ORDERED: Piperacill/Tazo 3.375gm in Dex 3.375 GM/50 ML BAG IVPB SCH (12:33)
--- NOTE | 2019-04-21 12:44 | CP.PCM.PN ---
Subjective - Date & Time of Evaluation Date of Evaluation: 04/21/19 Time of Evaluation: 12:44 - Subjective Subjective: AFEBRILE, B/L LE RAW SKIN AND SUPERFICIAL ULCERATIONS. +VE MALODOROUS DRAINAGE XRAY RT TIBIA.FIBULA - ? SUSPICIOUS FOR OSTEOMYLITIS XRAY LT FOOT ; 1ST DISTALPHALNX W CUTANEOUS ULCER ? OM. LABS; WOUND CULTURE +VE GNR BLOOD CULTURES -VE GROWTH X 48HRS Objective - Vital Signs/Intake and Output Vital Signs (last 24 hours): Temp Pulse Resp BP Pulse Ox 98.5 F 87 20 134/83 99 04/21/19 07:55 04/21/19 07:55 04/21/19 07:55 04/21/19 07:55 04/21/19 07:55 Intake and Output: 04/21/19 04/21/19 06:59 18:59 Intake Total 1000 Output Total 1250 Balance -250 - Medications Medications: Current Medications Heparin Sodium (Porcine) (Heparin) 5,000 units SC BID [facility] Last Admin: 04/19/19 17:27 Dose: Not Given Vancomycin HCl 1.5 gm/ Sodium (Chloride) 500 mls @ 133.333 mls/hr IVPB Q12H [facility]; Protocol Stop: 04/25/19 14:01 Last Admin: 04/21/19 01:17 Dose: 133.333 mls/hr Piperacillin Sod/Tazobactam Sod (Zosyn 3.375 Gm Iv Premix) 3.375 gm in 50 mls @ 100 mls/hr IVPB Q8H [facility]; Protocol Ibuprofen (Motrin Tab) 600 mg PO Q6 PRN PRN Reason: Pain, moderate (4-7) Last Admin: 04/19/19 21:15 Dose: 600 mg Sodium Hypochlorite (Dakins Solution 0.25%) 0 ml TOP DAILY [facility] Last Admin: 04/21/19 10:06 Dose: Not Given - Labs Labs: 04/21/19 07:59 04/21/19 07:59 PT 16.8 SECONDS (9.7-12.2) H 04/19/19 00:46 INR 1.5 04/19/19 00:46 APTT 39.2 SECONDS (21-34) H 04/19/19 00:46 - Constitutional Appears: No Acute Distress - Head Exam Head Exam: NORMAL INSPECTION - Eye Exam Eye Exam: EOMI - ENT Exam ENT Exam: Normal Oropharynx - Neck Exam Neck Exam: Normal Inspection - Respiratory Exam Respiratory Exam: Clear to Ausculation Bilateral, NORMAL BREATHING PATTERN - Cardiovascular Exam Cardiovascular Exam: REGULAR RHYTHM, +S1, +S2 - GI/Abdominal Exam GI & Abdominal Exam: Soft, Normal Bowel Sounds - Extremities Exam Extremities Exam: Pedal Edema. absent: Calf Tenderness Additional comments: Warm (DERM: extensive chronic venous stasis ulcers noted circumferentially to bilateral lower extremities, ulcerations down to the subcutaneous layer, +VE MALODOROUS DRAINAGE. ULCR LT BIG TOE. Assessment and Plan (1) Cellulitis Status: Acute (2) Infestation by maggots Status: Acute (3) Chronic wound of extremity Status: Acute (4) Trench feet Status: Acute (5) Diabetes Status: Acute - Assessment and Plan (Free Text) Plan: CONTINUE IV ZOSYN 3.375MG IVPB Q 8HRLY.04/18/19 ADD IV VANCOMYCIN 1500MG IVPB Q 12HRLY 04/20/19. [facility] PER PODIATRY WITH H2O2 /DAKINS SOLUTION . F/U MRI ORDERED BY PODIATRY. CASE DISCUSSED WITH STAFF.
--- NOTE | 2019-04-21 14:28 | CP.PCM.PN ---
Subjective - Date & Time of Evaluation Date of Evaluation: 04/21/19 Time of Evaluation: 14:28 - Subjective Subjective: Podiatry Progress Note- Dr. Marques 48 y/o homeless male seen at bedside this morning with nurse for bilateral lower extremity venous stasis ulcerations with maggots. Pt denies having any pain in the legs today. Says the crawling sensation has stopped. Admits he tried to have the MRI done but he could not tolerate it as it caused him severe back pain having to lie flat. Says the Dakins dressings thomas his skin and he doesn't want them. Denies F/C/N/V/CP/SOB Objective - Vital Signs/Intake and Output Vital Signs (last 24 hours): Temp Pulse Resp BP Pulse Ox 99.1 F 84 18 107/72 99 04/21/19 14:09 04/21/19 13:57 04/21/19 13:57 04/21/19 13:57 04/21/19 07:55 Intake and Output: 04/21/19 04/21/19 06:59 18:59 Intake Total 1000 0 Output Total 1250 Balance -250 0 - Medications Medications: Current Medications Acetaminophen (Tylenol 325mg Tab) 650 mg PO Q6 PRN PRN Reason: Fever >100.4 F Last Admin: 04/21/19 14:09 Dose: 650 mg Heparin Sodium (Porcine) (Heparin) 5,000 units SC BID [facility] Last Admin: 04/19/19 17:27 Dose: Not Given Vancomycin HCl 1.5 gm/ Sodium (Chloride) 500 mls @ 133.333 mls/hr IVPB Q12H [facility]; Protocol Stop: 04/25/19 14:01 Last Admin: 04/21/19 01:17 Dose: 133.333 mls/hr Piperacillin Sod/Tazobactam Sod (Zosyn 3.375 Gm Iv Premix) 3.375 gm in 50 mls @ 100 mls/hr IVPB Q8H [facility]; Protocol Ibuprofen (Motrin Tab) 600 mg PO Q6 PRN PRN Reason: Pain, moderate (4-7) Last Admin: 04/19/19 21:15 Dose: 600 mg Sodium Hypochlorite (Dakins Solution 0.25%) 0 ml TOP DAILY [facility] Last Admin: 04/21/19 10:06 Dose: Not Given - Labs Labs: 04/21/19 07:59 04/21/19 07:59 PT 16.8 SECONDS (9.7-12.2) H 04/19/19 00:46 INR 1.5 04/19/19 00:46 APTT 39.2 SECONDS (21-34) H 04/19/19 00:46 - Constitutional Appears: Well, Non-toxic, No Acute Distress - Extremities Exam Additional comments: Lower extremity focused exam: VASC: DP and PT pulses are 1/4 B/L. Temperature gradient is warm to warm. +2 pitting pedal edema noted B/L from tibial tuberosity to digits NEURO: protective sensation grossly intact DERM: extensive chronic venous stasis ulcers noted circumferentially to bilateral lower extremities. Ulcerations extend down to the subcutaneous layer with mixed fibrogranular wound base, positive malodor, no drainage, no purulence , no probe to bone, no tunneling or tracking noted. Numerous maggots noted in digital interspaces and within wound bed, with significant interdigital macerationa and signs of trench foot also noted with maceration to the feet and posterior heels Ortho: no tenderness to palpation of bilateral lower extremities - Neurological Exam Neurological Exam: Alert, Awake, Oriented x3 - Psychiatric Exam Psychiatric exam: Normal Affect, Normal Mood Assessment and Plan - Assessment and Plan (Free Text) Assessment: 48 y/o male with bilateral lower extremity chronic venous stasis ulcerations, infested with maggots Plan Patient seen and evaluated at bedside Discussed plan with Dr. Marques Bilateral LE dressings removed and legs re-cleansed with peroxide - 3-4 maggots noted within wound bed today Legs extensively washed with hydrogen peroxide and left open to air Nursing to continue to perform peroxide soaks Q2H and apply xeroform, DSD tonight after legs have been decontaminated - pt refusing Dakins dressing RLE xray reveals acute periosteal rxn of mid to distal tibia, consistent with acute osteomyelitis RLE MRI results pending Wound cultures B/L lower extremities pending - prelim shows growth of gram neg rashard ESR 110, CRP >15; suspicious for acute process Await results of MRI prior to any surgical planning/intervention Will continue local wound care at this time Will continue to follow patient while in house
[2019-04-21 21:16] LABS: HEMOGLOBIN 8.6 g/dL (12.0-18.0); MEAN CORPUSCULAR HEMOGLOBIN 24.2 pg (27.0-31.0); MEAN CORPUSCULAR HGB CONC 31.9 g/dL (33.0-37.0); MEAN PLATELET VOLUME 6.3 fL (7.2-11.7); RBC 3.55 Mil/uL (4.40-5.90); RED CELL DISTRIBUTION WIDTH 17.5 % (11.5-14.5); WHITE BLOOD COUNT 5.4 K/uL (4.8-10.8)
[2019-04-22] MEDS: Vancomycin 1.5 GM in Sodium Chloride 0.9% 500 ML IVPB SCH (01:10)
[2019-04-22] MEDS: Piperacill/Tazo 3.375gm in Dex 3.375 GM/50 ML BAG IVPB SCH ×2 (01:10→09:38)
[2019-04-22 08:20] LABS: EOS # 0.3 K/uL (0.0-0.7); EOS % 5.9 % (0.0-4.0); HEMOGLOBIN 8.9 g/dL (12.0-18.0); LYMPH # 1.4 K/uL (1.0-4.3); LYMPH % 31.2 % (20.0-40.0); MEAN CELL VOLUME 75.2 fL (80.0-94.0); MEAN CORPUSCULAR HEMOGLOBIN 24.6 pg (27.0-31.0); MEAN CORPUSCULAR HGB CONC 32.7 g/dL (33.0-37.0); MEAN PLATELET VOLUME 6.5 fL (7.2-11.7); MONO # 0.4 K/uL (0.0-0.8); MONO % 9.8 % (0.0-10.0); NEUT # 2.3 K/uL (1.8-7.0); NEUT % 52.1 % (50.0-75.0); RBC 3.63 Mil/uL (4.40-5.90); RED CELL DISTRIBUTION WIDTH 17.5 % (11.5-14.5); WHITE BLOOD COUNT 4.4 K/uL (4.8-10.8)
[2019-04-22 08:33] LABS: BLOOD UREA NITROGEN 9 mg/dL (9-20); CALCIUM 7.9 mg/dl (8.6-10.4); GFR NON-AFRICAN AMERICAN > 60
[2019-04-22] MEDS: Dakin's Topical 0.25%-Half Strength (480 ml) TOP SCH (09:33)
--- NOTE | 2019-04-22 12:27 | CP.PCM.PN ---
Subjective - Date & Time of Evaluation Date of Evaluation: 04/22/19 Time of Evaluation: 12:26 - Subjective Subjective: AFEBRILE WOUNDS ON BOTH LEGS IMPROVING MRI COULD NOT BE DONE C/S PSEUDOMONAS IV AB /LOCAL WOUND CARE Objective - Vital Signs/Intake and Output Vital Signs (last 24 hours): Temp Pulse Resp BP Pulse Ox 98.1 F 74 20 144/85 100 04/22/19 08:22 04/22/19 08:22 04/22/19 08:22 04/22/19 08:22 04/22/19 08:22 Intake and Output: 04/22/19 04/22/19 11:59 23:59 Intake Total 250 Output Total 1000 Balance -750 - Medications Medications: Current Medications Acetaminophen (Tylenol 325mg Tab) 650 mg PO Q6 PRN PRN Reason: Fever >100.4 F Last Admin: 04/21/19 14:09 Dose: 650 mg Heparin Sodium (Porcine) (Heparin) 5,000 units SC BID [facility] Last Admin: 04/19/19 17:27 Dose: Not Given Vancomycin HCl 1.5 gm/ Sodium (Chloride) 500 mls @ 133.333 mls/hr IVPB Q12H [facility] ; Protocol Stop: 04/25/19 14:01 Last Admin: 04/22/19 01:10 Dose: 133.333 mls/hr Piperacillin Sod/Tazobactam Sod (Zosyn 3.375 Gm Iv Premix) 3.375 gm in 50 mls @ 100 mls/hr IVPB Q8H [facility]; Protocol Last Admin: 04/22/19 09:38 Dose: 100 mls/hr Ibuprofen (Motrin Tab) 600 mg PO Q6 PRN PRN Reason: Pain, moderate (4-7) Last Admin: 04/19/19 21:15 Dose: 600 mg Sodium Hypochlorite (Dakins Solution 0.25%) 0 ml TOP DAILY [facility] Last Admin: 04/22/19 09:33 Dose: Not Given - Labs Labs: 04/22/19 07:55 04/22/19 07:55 PT 16.8 SECONDS (9.7-12.2) H 04/19/19 00:46 INR 1.5 04/19/19 00:46 APTT 39.2 SECONDS (21-34) H 04/19/19 00:46 Assessment and Plan (1) Trench feet Status: Acute (2) Cellulitis Status: Acute (3) Chronic wound of extremity Status: Acute (4) Venous stasis dermatitis of both lower extremities Status: Acute
--- NOTE | 2019-04-22 12:33 | CP.PCM.PN ---
Subjective - Date & Time of Evaluation Date of Evaluation: 04/22/19 Time of Evaluation: 12:33 - Subjective Subjective: AFEBRILE, B/L LE RAW SKIN AND SUPERFICIAL ULCERATIONS. +VE MALODOROUS DRAINAGE XRAY RT TIBIA.FIBULA - ? SUSPICIOUS FOR OSTEOMYLITIS XRAY LT FOOT ; 1ST DISTAL PHALNX W CUTANEOUS ULCER ? OM. LABS; MRI LE COULD NOT BE DONE DUE TO PTS INABILTY TO LIE FLAT WOUND CULTURE +VE pseudomonas aeruginosa S- CIPRO ULISSES 0.25, R- CEFEPIME BLOOD CULTURES -VE GROWTH X 48HRS. PLAN DC IV ZOSYN,. DC IV VANCOMYCIN. START IV CIPRO 400MG IV PB Q 12 [facility] START IV MERREM 1GM IVPB Q 12HRLY 04/22/19 Objective - Vital Signs/Intake and Output Vital Signs (last 24 hours): Temp Pulse Resp BP Pulse Ox 98.1 F 74 20 144/85 100 04/22/19 08:22 04/22/19 08:22 04/22/19 08:22 04/22/19 08:22 04/22/19 08:22 Intake and Output: 04/22/19 04/22/19 06:59 18:59 Intake Total 250 Output Total 1000 Balance -750 - Medications Medications: Current Medications Acetaminophen (Tylenol 325mg Tab) 650 mg PO Q6 PRN PRN Reason: Fever >100.4 F Last Admin: 04/21/19 14:09 Dose: 650 mg Heparin Sodium (Porcine) (Heparin) 5,000 units SC BID [facility] Last Admin: 04/19/19 17:27 Dose: Not Given Vancomycin HCl 1.5 gm/ Sodium (Chloride) 500 mls @ 133.333 mls/hr IVPB Q12H [facility]; Protocol Stop: 04/25/19 14:01 Last Admin: 04/22/19 01:10 Dose: 133.333 mls/hr Piperacillin Sod/Tazobactam Sod (Zosyn 3.375 Gm Iv Premix) 3.375 gm in 50 mls @ 100 mls/hr IVPB Q8H [facility]; Protocol Last Admin: 04/22/19 09:38 Dose: 100 mls/hr Ibuprofen (Motrin Tab) 600 mg PO Q6 PRN PRN Reason: Pain, moderate (4-7) Last Admin: 04/19/19 21:15 Dose: 600 mg Sodium Hypochlorite (Dakins Solution 0.25%) 0 ml TOP DAILY [facility] Last Admin: 04/22/19 09:33 Dose: Not Given - Labs Labs: 04/22/19 07:55 04/22/19 07:55 PT 16.8 SECONDS (9.7-12.2) H 04/19/19 00:46 INR 1.5 04/19/19 00:46 APTT 39.2 SECONDS (21-34) H 04/19/19 00:46 - Constitutional Appears: No Acute Distress - Head Exam Head Exam: NORMAL INSPECTION - Eye Exam Eye Exam: EOMI, PERRL - ENT Exam ENT Exam: Normal Oropharynx - Neck Exam Neck Exam: Normal Inspection - Respiratory Exam Respiratory Exam: Clear to Ausculation Bilateral, NORMAL BREATHING PATTERN - Cardiovascular Exam Cardiovascular Exam: REGULAR RHYTHM, +S1, +S2 - GI/Abdominal Exam GI & Abdominal Exam: Soft, Normal Bowel Sounds - Extremities Exam Extremities Exam: Pedal Edema (B/L LE ULCERATIONSWITH DENUDED SKIN+VE MALODOROUS DRAINAGE) - Neurological Exam Neurological Exam: Awake, CN II-XII Intact, Oriented x3, Reflexes Normal - Psychiatric Exam Psychiatric exam: Normal Mood - Skin Skin Exam: Normal Color, Warm Assessment and Plan (1) Cellulitis Status: Acute (2) Infestation by maggots Status: Acute (3) Chronic wound of extremity Status: Acute (4) Trench feet Status: Acute (5) Diabetes Status: Acute - Assessment and Plan (Free Text) Plan: DC IV ZOSYN 3.375MG IVPB Q 8HRLY.04/18/19 DC IV VANCOMYCIN 1500MG IVPB Q 12HRLY 04/20/19. START IV CIPRO 400MG IVPB [id number] 04/22/19 START IV MERREM 1GM IVPB Q 12HRLY 04/22/19 [facility] PER PODIATRY WITH H2O2 /DAKINS SOLUTION . CASE DISCUSSED WITH STAFF.
--- NOTE | 2019-04-22 12:40 | CP.PCM.PN ---
Subjective - Date & Time of Evaluation Date of Evaluation: 04/22/19 Time of Evaluation: 12:34 - Subjective Subjective: Podiatry Progress Note- Dr. Marques 48 y/o homeless male seen at bedside this morning for bilateral lower extremity venous stasis ulcerations with maggots. Patient is AAO X 3 and NAD. Patient denies having any pain in the legs today. He states that the Dakins dressings thomas his skin and he doesn't want them today also. He denies any overnight F/C/N/V/CP/SOB Objective - Vital Signs/Intake and Output Vital Signs (last 24 hours): Temp Pulse Resp BP Pulse Ox 98.1 F 74 20 144/85 100 04/22/19 08:22 04/22/19 08:22 04/22/19 08:22 04/22/19 08:22 04/22/19 08:22 Intake and Output: 04/22/19 04/22/19 06:59 18:59 Intake Total 250 Output Total 1000 Balance -750 - Medications Medications: Current Medications Acetaminophen (Tylenol 325mg Tab) 650 mg PO Q6 PRN PRN Reason: Fever >100.4 F Last Admin: 04/21/19 14:09 Dose: 650 mg Heparin Sodium (Porcine) (Heparin) 5,000 units SC BID SHAREE Last Admin: 04/19/19 17:27 Dose: Not Given Vancomycin HCl 1.5 gm/ Sodium (Chloride) 500 mls @ 133.333 mls/hr IVPB Q12H SHAREE; Protocol Stop: 04/25/19 14:01 Last Admin: 04/22/19 01:10 Dose: 133.333 mls/hr Ibuprofen (Motrin Tab) 600 mg PO Q6 PRN PRN Reason: Pain, moderate (4-7) Last Admin: 04/19/19 21:15 Dose: 600 mg Sodium Hypochlorite (Dakins Solution 0.25%) 0 ml TOP DAILY SHAREE Last Admin: 04/22/19 09:33 Dose: Not Given - Labs Labs: 04/22/19 07:55 04/22/19 07:55 PT 16.8 SECONDS (9.7-12.2) H 04/19/19 00:46 INR 1.5 04/19/19 00:46 APTT 39.2 SECONDS (21-34) H 04/19/19 00:46 - Constitutional Appears: No Acute Distress - Head Exam Head Exam: ATRAUMATIC - Extremities Exam Additional comments: B/L Lower extremity focused exam: VASC: DP and PT pulses are 1/4 B/L. Temperature gradient is warm to warm from proximal to distal. +2 pitting pedal edema noted B/L from tibial tuberosity to digits. NEURO: protective sensation grossly intact. DERM: extensive chronic venous stasis ulcers noted circumferentially to bilateral lower extremities. Ulcerations extend down to the subcutaneous layer with mixed fibrogranular wound base, positive malodor but less than yesterday, no drainage, no purulence, no probe to bone, no tunneling or tracking noted. No maggots noted today, with significant interdigital macerationa and signs of trench foot also noted with maceration to the feet and posterior heels (improving) MSK: no tenderness to palpation of bilateral lower extremities. MMT 5/5 to all groups. - Neurological Exam Neurological Exam: Alert, Awake, Oriented x3 Assessment and Plan - Assessment and Plan (Free Text) Assessment: 48 y/o male with bilateral lower extremity chronic venous stasis ulcerations, infested with maggots. Plan: Patient seen and evaluated at bedside Discussed plan with Dr. Marques Charts, labs and vitals reviewed: Afebrile, No leukocytosis Nursing to continue to perform peroxide soaks Q2H and apply xeroform, DSD tonight after legs have been decontaminated - pt refusing Dakins dressing RLE xray reveals acute periosteal rxn of mid to distal tibia, consistent with acute osteomyelitis RLE MRI results couldn't be done. Wound cultures B/L lower extremities pending - Pseudomonas aeruginosa ESR 110, CRP >15; suspicious for acute process Await results of MRI prior to any surgical planning/intervention Will continue local wound care at this time Will continue to follow patient while in house
[2019-04-22] MEDS: Ciprofloxacin 400mg/200ml D5W 400 MG/200 ML BAG IVPB SCH (12:56)
[2019-04-22] MEDS: Meropenem 1 GM in Sodium Chloride 0.9% 100 ML IVPB SCH (18:02)
[2019-04-23] MEDS: Ciprofloxacin 400mg/200ml D5W 400 MG/200 ML BAG IVPB SCH ×2 (00:18→12:58)
[2019-04-23] MEDS: Meropenem 1 GM in Sodium Chloride 0.9% 100 ML IVPB SCH ×2 (05:51→17:00)
[2019-04-23] MEDS: Dakin's Topical 0.25%-Half Strength (480 ml) TOP SCH (10:36)
--- NOTE | 2019-04-23 12:03 | CP.PCM.PN ---
Subjective - Date & Time of Evaluation Date of Evaluation: 04/23/19 Time of Evaluation: 12:02 - Subjective Subjective: AFEBRILE WOUND HEALING LESS MALODORS C/S PSEUDOM MRI PENDING Objective - Vital Signs/Intake and Output Vital Signs (last 24 hours): Temp Pulse Resp BP Pulse Ox 97.9 F 71 20 149/91 H 100 04/23/19 08:27 04/23/19 08:27 04/23/19 08:27 04/23/19 08:27 04/23/19 08:27 - Medications Medications: Current Medications Acetaminophen (Tylenol 325mg Tab) 650 mg PO Q6 PRN PRN Reason: Fever >100.4 F Last Admin: 04/21/19 14:09 Dose: 650 mg Heparin Sodium (Porcine) (Heparin) 5,000 units SC BID SHAREE Last Admin: 04/19/19 17:27 Dose: Not Given Ciprofloxacin (Cipro 400mg/200ml Dsw) 400 mg in 200 mls @ 133 mls/hr IVPB Q12H SHAREE; Protocol Last Admin: 04/23/19 00:18 Dose: 133 mls/hr Meropenem 1 gm/ Sodium (Chloride) 100 mls @ 100 mls/hr IVPB Q12H SHAREE; Protocol Last Admin: 04/23/19 05:51 Dose: 100 mls/hr Ibuprofen (Motrin Tab) 600 mg PO Q6 PRN PRN Reason: Pain, moderate (4-7) Last Admin: 04/19/19 21:15 Dose: 600 mg Sodium Hypochlorite (Dakins Solution 0.25%) 0 ml TOP DAILY SHAREE Last Admin: 04/22/19 09:33 Dose: Not Given - Labs Labs: 04/22/19 07:55 04/22/19 07:55 PT 16.8 SECONDS (9.7-12.2) H 04/19/19 00:46 INR 1.5 04/19/19 00:46 APTT 39.2 SECONDS (21-34) H 04/19/19 00:46 Assessment and Plan (1) Trench feet Status: Acute (2) Cellulitis Status: Acute (3) Chronic wound of extremity Status: Acute (4) Venous stasis dermatitis of both lower extremities Status: Acute
--- NOTE | 2019-04-23 12:21 | CP.PCM.PN ---
Subjective - Date & Time of Evaluation Date of Evaluation: 04/23/19 Time of Evaluation: 12:17 - Subjective Subjective: Podiatry Progress Note- Dr. Marques 48 y/o homeless male seen at bedside this morning for bilateral lower extremity venous stasis ulcerations with maggots. Patient is AAO X 3 and NAD. Patient denies having any pain in the legs today. He states that he doesn't want to do dressing change for his legs today. He denies any overnight F/C/N/V/CP/SOB Objective - Vital Signs/Intake and Output Vital Signs (last 24 hours): Temp Pulse Resp BP Pulse Ox 97.9 F 71 20 149/91 H 100 04/23/19 08:27 04/23/19 08:27 04/23/19 08:27 04/23/19 08:27 04/23/19 08:27 - Medications Medications: Current Medications Acetaminophen (Tylenol 325mg Tab) 650 mg PO Q6 PRN PRN Reason: Fever >100.4 F Last Admin: 04/21/19 14:09 Dose: 650 mg Heparin Sodium (Porcine) (Heparin) 5,000 units SC BID SHAREE Last Admin: 04/19/19 17:27 Dose: Not Given Ciprofloxacin (Cipro 400mg/200ml Dsw) 400 mg in 200 mls @ 133 mls/hr IVPB Q12H SHAREE; Protocol Last Admin: 04/23/19 00:18 Dose: 133 mls/hr Meropenem 1 gm/ Sodium (Chloride) 100 mls @ 100 mls/hr IVPB Q12H SHAREE; Protocol Last Admin: 04/23/19 05:51 Dose: 100 mls/hr Ibuprofen (Motrin Tab) 600 mg PO Q6 PRN PRN Reason: Pain, moderate (4-7) Last Admin: 04/19/19 21:15 Dose: 600 mg Sodium Hypochlorite (Dakins Solution 0.25%) 0 ml TOP DAILY SHAREE Last Admin: 04/22/19 09:33 Dose: Not Given - Labs Labs: 04/22/19 07:55 04/22/19 07:55 PT 16.8 SECONDS (9.7-12.2) H 04/19/19 00:46 INR 1.5 04/19/19 00:46 APTT 39.2 SECONDS (21-34) H 04/19/19 00:46 - Constitutional Appears: Non-toxic, No Acute Distress - Head Exam Head Exam: ATRAUMATIC, NORMOCEPHALIC - Extremities Exam Additional comments: B/L Lower extremity focused exam: Dressing was Dry and intact with minimal strike through. Patient declined the dressing change. Cap refill < 3 sec to all digits. - Neurological Exam Neurological Exam: Alert, Awake, Oriented x3 Assessment and Plan - Assessment and Plan (Free Text) Assessment: 48 y/o male with bilateral lower extremity chronic venous stasis ulcerations, infested with maggots. Plan: Patient seen and evaluated at bedside Discussed plan with Dr. Marques Charts, labs and vitals reviewed: Afebrile, No leukocytosis Dressing was Dry and intact with minimal strike through. Patient declined the dressing change today. Cap refill < 3 sec to all digits. RLE xray reveals acute periosteal rxn of mid to distal tibia, consistent with acute osteomyelitis RLE MRI results couldn't be done. Ordered bone scan. Wound cultures B/L lower extremities pending - Pseudomonas aeruginosa ESR 110, CRP >15; suspicious for acute process. Will continue local wound care at this time. Podiatry will continue to follow up the patient while in house
--- NOTE | 2019-04-23 12:43 | CP.PCM.PN ---
Subjective - Date & Time of Evaluation Date of Evaluation: 04/23/19 Time of Evaluation: 12:43 - Subjective Subjective: AFEBRILE VSS NO NEW COMPLAINTS. PODIATRY HELP APPRECIATED. B/L LOWER EXT. ULCERATIONS. NO CRAWLING FELT BY PT OF MAGGOTS Objective - Vital Signs/Intake and Output Vital Signs (last 24 hours): Temp Pulse Resp BP Pulse Ox 97.9 F 71 20 149/91 H 100 04/23/19 08:27 04/23/19 08:27 04/23/19 08:27 04/23/19 08:27 04/23/19 08:27 - Medications Medications: Current Medications Acetaminophen (Tylenol 325mg Tab) 650 mg PO Q6 PRN PRN Reason: Fever >100.4 F Last Admin: 04/21/19 14:09 Dose: 650 mg Heparin Sodium (Porcine) (Heparin) 5,000 units SC BID SHAREE Last Admin: 04/19/19 17:27 Dose: Not Given Ciprofloxacin (Cipro 400mg/200ml Dsw) 400 mg in 200 mls @ 133 mls/hr IVPB Q12H SHAREE; Protocol Last Admin: 04/23/19 00:18 Dose: 133 mls/hr Meropenem 1 gm/ Sodium (Chloride) 100 mls @ 100 mls/hr IVPB Q12H SHAREE; Protocol Last Admin: 04/23/19 05:51 Dose: 100 mls/hr Ibuprofen (Motrin Tab) 600 mg PO Q6 PRN PRN Reason: Pain, moderate (4-7) Last Admin: 04/19/19 21:15 Dose: 600 mg Sodium Hypochlorite (Dakins Solution 0.25%) 0 ml TOP DAILY SHAREE Last Admin: 04/23/19 10:36 Dose: Not Given - Labs Labs: 04/22/19 07:55 04/22/19 07:55 PT 16.8 SECONDS (9.7-12.2) H 04/19/19 00:46 INR 1.5 04/19/19 00:46 APTT 39.2 SECONDS (21-34) H 04/19/19 00:46 - Constitutional Appears: No Acute Distress - Head Exam Head Exam: NORMAL INSPECTION - Eye Exam Eye Exam: EOMI, PERRL - ENT Exam ENT Exam: Normal Oropharynx - Respiratory Exam Respiratory Exam: Clear to Ausculation Bilateral, NORMAL BREATHING PATTERN - Cardiovascular Exam Cardiovascular Exam: REGULAR RHYTHM, +S1, +S2 - GI/Abdominal Exam GI & Abdominal Exam: Soft, Normal Bowel Sounds - Extremities Exam Extremities Exam: Pedal Edema (B/L VENOUS STASIS ULCERATIONS WITH SEROSANGINOUS DRAINAGE.). absent: Calf Tenderness - Neurological Exam Neurological Exam: Awake, CN II-XII Intact, Oriented x3 - Psychiatric Exam Psychiatric exam: Normal Mood - Skin Skin Exam: Normal Color, Warm Assessment and Plan (1) Cellulitis Status: Acute (2) Infestation by maggots Status: Acute (3) Chronic wound of extremity Status: Acute (4) Trench feet Status: Acute (5) Diabetes Status: Acute - Assessment and Plan (Free Text) Plan: CONTINUE IV CIPRO 400MG IVPB [id number] 04/22/19 CONTINUE IV MERREM 1GM IVPB Q 12HRLY 04/22/19 LWC PER PODIATRY WITH H2O2 /DAKINS SOLUTION . CASE DISCUSSED WITH STAFF.
[2019-04-24] MEDS: Ciprofloxacin 400mg/200ml D5W 400 MG/200 ML BAG IVPB SCH ×2 (00:35→13:07)
[2019-04-24] MEDS: Meropenem 1 GM in Sodium Chloride 0.9% 100 ML IVPB SCH ×3 (05:13→20:01)
[2019-04-24] MEDS: Dakin's Topical 0.25%-Half Strength (480 ml) TOP SCH (10:12)
--- NOTE | 2019-04-24 11:52 | CP.PCM.PN ---
Subjective - Date & Time of Evaluation Date of Evaluation: 04/24/19 Time of Evaluation: 11:52 - Subjective Subjective: AFEBRILE WOUND HEALING LESS MALODORS C/S PSEUDOM MRI PENDING Objective - Vital Signs/Intake and Output Vital Signs (last 24 hours): Temp Pulse Resp BP Pulse Ox 97.9 F 74 20 115/72 98 04/24/19 07:00 04/24/19 07:00 04/24/19 07:00 04/24/19 07:00 04/24/19 07:00 Intake and Output: 04/23/19 04/24/19 23:59 11:59 Intake Total 600 Balance 600 - Medications Medications: Current Medications Acetaminophen (Tylenol 325mg Tab) 650 mg PO Q6 PRN PRN Reason: Fever >100.4 F Last Admin: 04/21/19 14:09 Dose: 650 mg Heparin Sodium (Porcine) (Heparin) 5,000 units SC BID SHAREE Last Admin: 04/19/19 17:27 Dose: Not Given Ciprofloxacin (Cipro 400mg/200ml Dsw) 400 mg in 200 mls @ 133 mls/hr IVPB Q12H SHAREE; Protocol Last Admin: 04/24/19 00:35 Dose: 133 mls/hr Meropenem 1 gm/ Sodium (Chloride) 100 mls @ 100 mls/hr IVPB Q12H SHAREE; Protocol Last Admin: 04/24/19 05:13 Dose: 100 mls/hr Ibuprofen (Motrin Tab) 600 mg PO Q6 PRN PRN Reason: Pain, moderate (4-7) Last Admin: 04/19/19 21:15 Dose: 600 mg Sodium Hypochlorite (Dakins Solution 0.25%) 0 ml TOP DAILY SHAREE Last Admin: 04/24/19 10:12 Dose: Not Given - Labs Labs: 04/22/19 07:55 04/22/19 07:55 PT 16.8 SECONDS (9.7-12.2) H 04/19/19 00:46 INR 1.5 04/19/19 00:46 APTT 39.2 SECONDS (21-34) H 04/19/19 00:46 Assessment and Plan (1) Trench feet Status: Acute (2) Cellulitis Status: Acute (3) Chronic wound of extremity Status: Acute (4) Venous stasis dermatitis of both lower extremities Status: Acute
--- NOTE | 2019-04-24 13:21 | CP.PCM.PN ---
Subjective - Date & Time of Evaluation Date of Evaluation: 04/24/19 Time of Evaluation: 13:15 - Subjective Subjective: Podiatry Progress Note- Dr. Marques 48 y/o homeless male seen at bedside this morning for bilateral lower extremity venous stasis ulcerations with maggots. Patient is AAO X 3 and NAD. Patient denies having any pain in the legs today. He states that the Dakins dressings thomas his skin and he doesn't want them today also. He denies any overnight F/C/N/V/CP/SOB Objective - Vital Signs/Intake and Output Vital Signs (last 24 hours): Temp Pulse Resp BP Pulse Ox 97.9 F 74 20 115/72 98 04/24/19 07:00 04/24/19 07:00 04/24/19 07:00 04/24/19 07:00 04/24/19 07:00 Intake and Output: 04/24/19 04/24/19 06:59 18:59 Intake Total 600 Balance 600 - Medications Medications: Current Medications Acetaminophen (Tylenol 325mg Tab) 650 mg PO Q6 PRN PRN Reason: Fever >100.4 F Last Admin: 04/21/19 14:09 Dose: 650 mg Heparin Sodium (Porcine) (Heparin) 5,000 units SC BID SHAREE Last Admin: 04/19/19 17:27 Dose: Not Given Ciprofloxacin (Cipro 400mg/200ml Dsw) 400 mg in 200 mls @ 133 mls/hr IVPB Q12H SHAREE; Protocol Last Admin: 04/24/19 13:07 Dose: 133 mls/hr Meropenem 1 gm/ Sodium (Chloride) 100 mls @ 100 mls/hr IVPB Q12H SHAREE; Protocol Last Admin: 04/24/19 05:13 Dose: 100 mls/hr Ibuprofen (Motrin Tab) 600 mg PO Q6 PRN PRN Reason: Pain, moderate (4-7) Last Admin: 04/19/19 21:15 Dose: 600 mg Sodium Hypochlorite (Dakins Solution 0.25%) 0 ml TOP DAILY SHAREE Last Admin: 04/24/19 10:12 Dose: Not Given - Labs Labs: 04/22/19 07:55 04/22/19 07:55 PT 16.8 SECONDS (9.7-12.2) H 04/19/19 00:46 INR 1.5 04/19/19 00:46 APTT 39.2 SECONDS (21-34) H 04/19/19 00:46 - Constitutional Appears: Non-toxic, No Acute Distress - Head Exam Head Exam: ATRAUMATIC, NORMOCEPHALIC - Extremities Exam Additional comments: B/L Lower extremity focused exam: VASC: DP/PT pulses are 1/4 B/L. Temperature gradient is warm to warm from proximal to distal. +2 pitting pedal edema noted B/L from tibial tuberosity to digits. NEURO: protective sensation grossly intact. DERM: extensive chronic venous stasis ulcers noted circumferentially to bilateral lower extremities. Ulcerations extend down to the subcutaneous layer with mixed fibrogranular wound base, positive malodor but less than yesterday, no drainage, no purulence, no probe to bone, no tunneling or tracking noted. No maggots noted today, with significant interdigital macerationa and signs of trench foot also noted with maceration to the feet and posterior heels (improving) MSK: no tenderness to palpation of bilateral lower extremities. MMT 5/5 to all groups. - Neurological Exam Neurological Exam: Alert, Awake, Oriented x3 Assessment and Plan - Assessment and Plan (Free Text) Assessment: 48 y/o male with bilateral lower extremity chronic venous stasis ulcerations, infested with maggots. Plan: Patient seen and evaluated at bedside Discussed plan with Dr. Marques Charts, labs and vitals reviewed: Afebrile, No leukocytosis Nursing to continue to perform peroxide soaks Q2H and apply xeroform, DSD tonight after legs have been decontaminated - pt refusing Dakins dressing. RLE xray reveals acute periosteal reaction of mid to distal tibia, consistent with acute osteomyelitis. RLE MRI results couldn't be done. Wound cultures B/L lower extremities pending - Pseudomonas aeruginosa ESR 110, CRP >15; suspicious for acute process RLE MRI results couldn't be done. Ordered bone scan: Pending Will continue local wound care at this time Podiatry will continue to follow up the patient while in house
[2019-04-25] MEDS: Ciprofloxacin 400mg/200ml D5W 400 MG/200 ML BAG IVPB SCH ×2 (01:06→13:28)
[2019-04-25] MEDS: Meropenem 1 GM in Sodium Chloride 0.9% 100 ML IVPB SCH ×2 (05:50→17:12)
[2019-04-25] MEDS: Dakin's Topical 0.25%-Half Strength (480 ml) TOP SCH (10:19)
--- NOTE | 2019-04-25 11:23 | CP.PCM.PN ---
Subjective - Date & Time of Evaluation Date of Evaluation: 04/25/19 Time of Evaluation: 11:22 - Subjective Subjective: CLINICALLY IMPROVING ULCERS IN LEG BETTER WITH LESS MALODOR C/S PEUDOMONAS IV AB AND LOCAL WOUND CARE Objective - Vital Signs/Intake and Output Vital Signs (last 24 hours): Temp Pulse Resp BP Pulse Ox 98.3 F 95 H 20 134/78 98 04/25/19 08:26 04/25/19 08:26 04/25/19 08:26 04/25/19 08:26 04/25/19 08:26 - Medications Medications: Current Medications Acetaminophen (Tylenol 325mg Tab) 650 mg PO Q6 PRN PRN Reason: Fever >100.4 F Last Admin: 04/21/19 14:09 Dose: 650 mg Heparin Sodium (Porcine) (Heparin) 5,000 units SC BID SHAREE Last Admin: 04/19/19 17:27 Dose: Not Given Ciprofloxacin (Cipro 400mg/200ml Dsw) 400 mg in 200 mls @ 133 mls/hr IVPB Q12H SHAREE; Protocol Last Admin: 04/25/19 01:06 Dose: 133 mls/hr Meropenem 1 gm/ Sodium (Chloride) 100 mls @ 100 mls/hr IVPB Q12H SHAREE; Protocol Last Admin: 04/25/19 05:50 Dose: 100 mls/hr Ibuprofen (Motrin Tab) 600 mg PO Q6 PRN PRN Reason: Pain, moderate (4-7) Last Admin: 04/19/19 21:15 Dose: 600 mg Sodium Hypochlorite (Dakins Solution 0.25%) 0 ml TOP DAILY SHAREE Last Admin: 04/25/19 10:19 Dose: Not Given - Labs Labs: 04/22/19 07:55 04/22/19 07:55 PT 16.8 SECONDS (9.7-12.2) H 04/19/19 00:46 INR 1.5 04/19/19 00:46 APTT 39.2 SECONDS (21-34) H 04/19/19 00:46 Assessment and Plan (1) Trench feet Status: Acute (2) Cellulitis Status: Acute (3) Chronic wound of extremity Status: Acute (4) Venous stasis dermatitis of both lower extremities Status: Acute
--- NOTE | 2019-04-25 13:16 | CP.PCM.PN ---
Subjective - Date & Time of Evaluation Date of Evaluation: 04/25/19 Time of Evaluation: 11:00 - Subjective Subjective: 48 y/o homeless male seen and evaluated for bilateral lower extremity secondary to venous stasis ulcerations with maggots. Patient is seen resting comfortably in bed, in NAD and AAO X 3. Patient denies pain to the lower extremity at the moment. Reports lower extremity wounds would thomas at time. Denies acute overnight events. Reports slept well. He denies any overnight F/C/N/V/CP/SOB Objective - Vital Signs/Intake and Output Vital Signs (last 24 hours): Temp Pulse Resp BP Pulse Ox 98.3 F 95 H 20 134/78 98 04/25/19 08:26 04/25/19 08:26 04/25/19 08:26 04/25/19 08:26 04/25/19 08:26 - Medications Medications: Current Medications Acetaminophen (Tylenol 325mg Tab) 650 mg PO Q6 PRN PRN Reason: Fever >100.4 F Last Admin: 04/21/19 14:09 Dose: 650 mg Heparin Sodium (Porcine) (Heparin) 5,000 units SC BID SHAREE Last Admin: 04/19/19 17:27 Dose: Not Given Ciprofloxacin (Cipro 400mg/200ml Dsw) 400 mg in 200 mls @ 133 mls/hr IVPB Q12H SHAREE; Protocol Last Admin: 04/25/19 01:06 Dose: 133 mls/hr Meropenem 1 gm/ Sodium (Chloride) 100 mls @ 100 mls/hr IVPB Q12H SHAREE; Protocol Last Admin: 04/25/19 05:50 Dose: 100 mls/hr Ibuprofen (Motrin Tab) 600 mg PO Q6 PRN PRN Reason: Pain, moderate (4-7) Last Admin: 04/19/19 21:15 Dose: 600 mg Sodium Hypochlorite (Dakins Solution 0.25%) 0 ml TOP DAILY SHAREE Last Admin: 04/25/19 10:19 Dose: Not Given - Labs Labs: 04/22/19 07:55 04/22/19 07:55 PT 16.8 SECONDS (9.7-12.2) H 04/19/19 00:46 INR 1.5 04/19/19 00:46 APTT 39.2 SECONDS (21-34) H 04/19/19 00:46 - Constitutional Appears: Well, Non-toxic, No Acute Distress - Extremities Exam Extremities Exam: absent: Calf Tenderness Additional comments: B/L Lower extremity focused exam: VASC: DP/PT pulses are 1/4 B/L. Temperature gradient is warm to warm from proximal to distal. +2 pitting pedal edema noted B/L from tibial tuberosity to digits. NEURO: protective sensation grossly intact. DERM: extensive chronic venous stasis ulcers noted circumferentially to bilateral lower extremities. Ulcerations extend down to the subcutaneous layer with mixed fibrogranular wound base, positive malodor but less than yesterday, no drainage, no purulence, no probe to bone, no tunneling or tracking noted. No maggots noted today, with significant interdigital macerationa and signs of trench foot also noted with maceration to the feet and posterior heels (improving) MSK: no tenderness to palpation of bilateral lower extremities. MMT 5/5 to all groups. - Neurological Exam Neurological Exam: Alert, Awake, Oriented x3 - Psychiatric Exam Psychiatric exam: Normal Affect, Normal Mood Assessment and Plan - Assessment and Plan (Free Text) Assessment: 48 y/o male with bilateral lower extremity chronic venous stasis ulcerations, infested with maggots- improving (no maggots detected today) Plan: Patient seen and evaluated at bedside Discussed plan with Dr. Marques Charts, labs and vitals reviewed: Afebrile, No leukocytosis Cleansed ulceration with saline solution, pat dry and applied DSD Nursing to continue to perform peroxide soaks Q2H and apply xeroform, DSD tonight after legs have been decontaminated RLE xray reveals acute periosteal reaction of mid to distal tibia, consistent with acute osteomyelitis. Wound cultures B/L lower extremities- Pseudomonas aeruginosa ESR 110, CRP >15; suspicious for acute process MRI- Impression Findings consistent with severe cellulitis right lower extremity compared to left. No compelling evidence for acute osseous process. Degenerative changes primarily affecting the knees. C/w abx per infectious disease Will continue local wound care at this time Podiatry will continue to follow up the patient while in house Upon discharge, patient to follow up with Dr. Marques in his office within 1 week of discharge Patient to keep dressing clean, dry and intact
--- NOTE | 2019-04-25 16:33 | NM ---
Date of service: 04/25/2019 PROCEDURE: Three-phase bone scan. HISTORY: B/L Leg ulcers. R/O or in OM. COMPARISON: 04/19/2019 radiographs of both feet and tibia/fibula. Summary of findings on the comparison examination: Long segment of osseous erosion and extensive periosteal reaction involving mid to distal right tibial diaphysis with overlying soft tissue ulceration. Erosion of right 1st distal phalanx suggestive of osteomyelitis. TECHNIQUE: Following administration of 24.3 miCu of Tc MDP three-phase bone scan performed particular attention directed to the lower extremities. FINDINGS: Flow component: Increased flow to the right calf without focal osseous abnormality. Blood pool component: Accumulation of radionuclide within the soft tissues particularly about the right calf compared to left. A focus of intense accumulation soft tissues at the level of the mid right tibia and fibula posteriorly consistent with ulcerations identified. Delayed images at 3:00: Retention of radionuclide soft tissues of the right thigh, right ankle and right foot Other findings: Degenerative changes both knees. IMPRESSION: Findings consistent with severe cellulitis right lower extremity compared to left. No compelling evidence for acute osseous process. Degenerative changes primarily affecting the knees.
--- NOTE | 2019-04-25 22:30 | CP.PCM.PN ---
Subjective - Date & Time of Evaluation Date of Evaluation: 04/25/19 Time of Evaluation: 22:30 - Subjective Subjective: AFEBRILE VSS NO NEW COMPLAINTS. B/L NEW DRESSINGS TODAY B/L LOWER EXT. ULCERATIONS. DENIES CRAWLING FELT OF MAGGOTS. DOES NOT WANT DAKINS SOLUTION WASHES Objective - Vital Signs/Intake and Output Vital Signs (last 24 hours): Temp Pulse Resp BP Pulse Ox 99.0 F 105 H 20 127/84 96 04/25/19 16:00 04/25/19 16:00 04/25/19 16:00 04/25/19 16:00 04/25/19 16:00 Intake and Output: 04/25/19 04/26/19 18:59 06:59 Intake Total 1160 Balance 1160 - Medications Medications: Current Medications Acetaminophen (Tylenol 325mg Tab) 650 mg PO Q6 PRN PRN Reason: Fever >100.4 F Last Admin: 04/21/19 14:09 Dose: 650 mg Heparin Sodium (Porcine) (Heparin) 5,000 units SC BID [facility] Last Admin: 04/19/19 17:27 Dose: Not Given Ciprofloxacin (Cipro 400mg/200ml Dsw) 400 mg in 200 mls @ 133 mls/hr IVPB Q12H [facility]; Protocol Last Admin: 04/25/19 13:28 Dose: 133 mls/hr Meropenem 1 gm/ Sodium (Chloride) 100 mls @ 100 mls/hr IVPB Q12H [facility]; Protocol Last Admin: 04/25/19 17:12 Dose: 100 mls/hr Ibuprofen (Motrin Tab) 600 mg PO Q6 PRN PRN Reason: Pain, moderate (4-7) Last Admin: 04/19/19 21:15 Dose: 600 mg Sodium Hypochlorite (Dakins Solution 0.25%) 0 ml TOP DAILY [facility] Last Admin: 04/25/19 10:19 Dose: Not Given - Labs Labs: 04/22/19 07:55 04/22/19 07:55 PT 16.8 SECONDS (9.7-12.2) H 04/19/19 00:46 INR 1.5 04/19/19 00:46 APTT 39.2 SECONDS (21-34) H 04/19/19 00:46 - Constitutional Appears: No Acute Distress - Head Exam Head Exam: NORMAL INSPECTION - Eye Exam Eye Exam: EOMI, PERRL - ENT Exam ENT Exam: Normal Oropharynx - Neck Exam Neck Exam: Normal Inspection - Respiratory Exam Respiratory Exam: Clear to Ausculation Bilateral, NORMAL BREATHING PATTERN - Cardiovascular Exam Cardiovascular Exam: REGULAR RHYTHM, +S1, +S2 - GI/Abdominal Exam GI & Abdominal Exam: Soft, Normal Bowel Sounds - Extremities Exam Extremities Exam: Pedal Edema (B/L DRESSINGS IN PLACE CDI). absent: Calf Tenderness - Neurological Exam Neurological Exam: Awake, CN II-XII Intact, Oriented x3, Reflexes Normal - Psychiatric Exam Psychiatric exam: Normal Mood - Skin Skin Exam: Normal Color, Warm Assessment and Plan (1) Cellulitis Status: Acute (2) Infestation by maggots Status: Acute (3) Chronic wound of extremity Status: Acute (4) Trench feet Status: Acute (5) Diabetes Status: Acute - Assessment and Plan (Free Text) Plan: CONTINUE IV CIPRO 400MG IVPB [id number] 04/22/19 CONTINUE IV MERREM 1GM IVPB Q 12HRLY 04/22/19 LWC PER PODIATRY WITH H2O2 /DAKINS SOLUTION . CASE DISCUSSED WITH STAFF.
[2019-04-26] MEDS: Ciprofloxacin 400mg/200ml D5W 400 MG/200 ML BAG IVPB SCH ×2 (00:12→13:30)
[2019-04-26] MEDS: Meropenem 1 GM in Sodium Chloride 0.9% 100 ML IVPB SCH ×2 (05:27→17:27)
[2019-04-26 07:47] LABS: BLOOD UREA NITROGEN 18 mg/dL (9-20); CALCIUM 8.6 mg/dl (8.6-10.4); GFR NON-AFRICAN AMERICAN > 60
[2019-04-26] MEDS: Dakin's Topical 0.25%-Half Strength (480 ml) TOP SCH (10:00)
[2019-04-26 11:29] LABS: BASO # 0.1 K/uL (0.0-0.2); BASO % 1.2 % (0.0-2.0); EOS # 0.4 K/uL (0.0-0.7); EOS % 6.6 % (0.0-4.0); LYMPH # 2.1 K/uL (1.0-4.3); LYMPH % 38.4 % (20.0-40.0); MEAN CELL VOLUME 74.8 fL (80.0-94.0); MEAN CORPUSCULAR HEMOGLOBIN 24.5 pg (27.0-31.0); MEAN CORPUSCULAR HGB CONC 32.7 g/dL (33.0-37.0); MEAN PLATELET VOLUME 6.4 fL (7.2-11.7); MONO # 0.7 K/uL (0.0-0.8); MONO % 12.3 % (0.0-10.0); NEUT # 2.2 K/uL (1.8-7.0); NEUT % 41.5 % (50.0-75.0); NRBC % 0.1 % (0.0-2.0); RBC 4.66 Mil/uL (4.40-5.90); RED CELL DISTRIBUTION WIDTH 18.1 % (11.5-14.5); WHITE BLOOD COUNT 5.4 K/uL (4.8-10.8)
[2019-04-26 11:31] LABS: HEMOGLOBIN 11.4 g/dL (12.0-18.0)
--- NOTE | 2019-04-26 11:34 | CP.PCM.PN ---
Subjective - Date & Time of Evaluation Date of Evaluation: 04/26/19 Time of Evaluation: 11:34 - Subjective Subjective: CLINICALLY IMPROVING ULCERS IN LEG BETTER WITH LESS MALODOR C/S PEUDOMONAS IV AB AND LOCAL WOUND CARE Objective - Vital Signs/Intake and Output Vital Signs (last 24 hours): Temp Pulse Resp BP Pulse Ox 97.9 F 87 18 129/81 100 04/26/19 07:00 04/26/19 07:00 04/26/19 07:00 04/26/19 07:00 04/26/19 07:00 Intake and Output: 04/25/19 04/26/19 23:59 11:59 Intake Total 1160 Balance 1160 - Medications Medications: Current Medications Acetaminophen (Tylenol 325mg Tab) 650 mg PO Q6 PRN PRN Reason: Fever >100.4 F Last Admin: 04/21/19 14:09 Dose: 650 mg Heparin Sodium (Porcine) (Heparin) 5,000 units SC BID [facility] Last Admin: 04/19/19 17:27 Dose: Not Given Ciprofloxacin (Cipro 400mg/200ml Dsw) 400 mg in 200 mls @ 133 mls/hr IVPB Q12H [facility]; Protocol Last Admin: 04/26/19 00:12 Dose: 133 mls/hr Meropenem 1 gm/ Sodium (Chloride) 100 mls @ 100 mls/hr IVPB Q12H [facility]; Protocol Last Admin: 04/26/19 05:27 Dose: 100 mls/hr Ibuprofen (Motrin Tab) 600 mg PO Q6 PRN PRN Reason: Pain, moderate (4-7) Last Admin: 04/19/19 21:15 Dose: 600 mg Sodium Hypochlorite (Dakins Solution 0.25%) 0 ml TOP DAILY [facility] Last Admin: 04/25/19 10:19 Dose: Not Given - Labs Labs: 04/26/19 11:11 04/26/19 07:29 PT 16.8 SECONDS (9.7-12.2) H 04/19/19 00:46 INR 1.5 04/19/19 00:46 APTT 39.2 SECONDS (21-34) H 04/19/19 00:46 Assessment and Plan (1) Trench feet Status: Acute (2) Cellulitis Status: Acute (3) Chronic wound of extremity Status: Acute (4) Venous stasis dermatitis of both lower extremities Status: Acute
[2019-04-26 16:19] VITALS: RESP 20
--- NOTE | 2019-04-26 23:41 | CP.PCM.PN ---
Subjective - Date & Time of Evaluation Date of Evaluation: 04/26/19 Time of Evaluation: 23:41 - Subjective Subjective: AFEBRILE VSS NO NEW COMPLAINTS. B/L DRESSINGS in place IV INFILTRATES POOR VEINS B/L LOWER EXT. ULCERATIONS. DENIES CRAWLING FELT OF MAGGOTS. PLAN DC IV CIPRO DC IV MERREM START PO CIPRO 5OOMG PO BID. [facility] PER PODIATRY PT AWAITING DISPOSITION. CASE DISCUSSED W ESTHETICIAN FACIALIST MS POWELL. Objective - Vital Signs/Intake and Output Vital Signs (last 24 hours): Temp Pulse Resp BP Pulse Ox 98.3 F 93 H 20 120/78 96 04/26/19 16:17 04/26/19 16:17 04/26/19 16:17 04/26/19 16:17 04/26/19 16:17 - Medications Medications: Current Medications Acetaminophen (Tylenol 325mg Tab) 650 mg PO Q6 PRN PRN Reason: Fever >100.4 F Last Admin: 04/21/19 14:09 Dose: 650 mg Ciprofloxacin (Cipro) 500 mg PO BID [facility]; Protocol Last Admin: 04/26/19 23:11 Dose: 500 mg Heparin Sodium (Porcine) (Heparin) 5,000 units SC BID [facility] Last Admin: 04/19/19 17:27 Dose: Not Given Meropenem 1 gm/ Sodium (Chloride) 100 mls @ 100 mls/hr IVPB Q12H [facility]; Protocol Last Admin: 04/26/19 17:27 Dose: 100 mls/hr Ibuprofen (Motrin Tab) 600 mg PO Q6 PRN PRN Reason: Pain, moderate (4-7) Last Admin: 04/19/19 21:15 Dose: 600 mg Sodium Hypochlorite (Dakins Solution 0.25%) 0 ml TOP DAILY [facility] Last Admin: 04/26/19 10:00 Dose: Not Given - Labs Labs: 04/26/19 11:11 04/26/19 07:29 PT 16.8 SECONDS (9.7-12.2) H 04/19/19 00:46 INR 1.5 04/19/19 00:46 APTT 39.2 SECONDS (21-34) H 04/19/19 00:46 - Constitutional Appears: No Acute Distress - Head Exam Head Exam: NORMAL INSPECTION - Eye Exam Eye Exam: EOMI, PERRL - ENT Exam ENT Exam: Normal Oropharynx - Neck Exam Neck Exam: Normal Inspection - Respiratory Exam Respiratory Exam: Clear to Ausculation Bilateral, NORMAL BREATHING PATTERN - Cardiovascular Exam Cardiovascular Exam: REGULAR RHYTHM, +S1, +S2 - GI/Abdominal Exam GI & Abdominal Exam: Soft, Normal Bowel Sounds - Extremities Exam Extremities Exam: Normal Capillary Refill (B/L LE IN DRESSINGS ), Pedal Edema. absent: Calf Tenderness - Neurological Exam Neurological Exam: Alert, Awake, CN II-XII Intact, Oriented x3, Reflexes Normal - Psychiatric Exam Psychiatric exam: Normal Mood - Skin Skin Exam: Normal Color, Warm Assessment and Plan (1) Cellulitis Status: Acute (2) Infestation by maggots Status: Acute (3) Chronic wound of extremity Status: Acute (4) Trench feet Status: Acute (5) Diabetes Status: Acute - Assessment and Plan (Free Text) Plan: IV INFILTRATED DC IV CIPRO 400MG IVPB [id number] 04/22/19 DC IV MERREM 1GM IVPB Q 12HRLY 04/22/19 SWITCH TO PO CIPRO 500MG PO BID . PT WILL NEED 14 DAYS OF ABX F/U BY REEVALUATION. LWC PER PODIATRY WITH H2O2 /DAKINS SOLUTION . CASE DISCUSSED WITH STAFF
[2019-04-27] MEDS: Dakin's Topical 0.25%-Half Strength (480 ml) TOP SCH (10:00)
--- NOTE | 2019-04-27 12:00 | CP.PCM.PN ---
Subjective - Date & Time of Evaluation Date of Evaluation: 04/27/19 Time of Evaluation: 11:59 - Subjective Subjective: CLINICALLY IMPROVING ULCERS IN LEG BETTER WITH LESS MALODOR C/S PEUDOMONAS IV AB AND LOCAL WOUND CARE Objective - Vital Signs/Intake and Output Vital Signs (last 24 hours): Temp Pulse Resp BP Pulse Ox 98.1 F 96 H 20 119/86 98 04/27/19 08:00 04/27/19 08:00 04/27/19 08:00 04/27/19 08:00 04/27/19 08:00 - Medications Medications: Current Medications Acetaminophen (Tylenol 325mg Tab) 650 mg PO Q6 PRN PRN Reason: Fever >100.4 F Last Admin: 04/21/19 14:09 Dose: 650 mg Ciprofloxacin (Cipro) 500 mg PO BID [facility]; Protocol Last Admin: 04/27/19 09:40 Dose: 500 mg Heparin Sodium (Porcine) (Heparin) 5,000 units SC BID [facility] Last Admin: 04/19/19 17:27 Dose: Not Given Ibuprofen (Motrin Tab) 600 mg PO Q6 PRN PRN Reason: Pain, moderate (4-7) Last Admin: 04/19/19 21:15 Dose: 600 mg Sodium Hypochlorite (Dakins Solution 0.25%) 0 ml TOP DAILY [facility] Last Admin: 04/26/19 10:00 Dose: Not Given - Labs Labs: 04/26/19 11:11 04/26/19 07:29 PT 16.8 SECONDS (9.7-12.2) H 04/19/19 00:46 INR 1.5 04/19/19 00:46 APTT 39.2 SECONDS (21-34) H 04/19/19 00:46 Assessment and Plan (1) Trench feet Status: Acute (2) Cellulitis Status: Acute (3) Chronic wound of extremity Status: Acute (4) Venous stasis dermatitis of both lower extremities Status: Acute
--- NOTE | 2019-04-27 14:54 | CP.PCM.PN ---
Subjective - Date & Time of Evaluation Date of Evaluation: 04/27/19 Time of Evaluation: 13:00 - Subjective Subjective: Podiatry Progress Note 48 y/o homeless male seen and evaluated for bilateral lower extremity secondary to venous stasis ulcerations with maggots -improving, no maggots seen. Patient is seen resting comfortably in bed, in NAD and AAO X 3. Patient reports improvements in swelling of his lower extremity and wound when dressing was marce elisabeth. Patient denies pain to the lower extremity. Denies acute overnight events. He denies any overnight F/C/N/V/CP/SOB Objective - Vital Signs/Intake and Output Vital Signs (last 24 hours): Temp Pulse Resp BP Pulse Ox 98.1 F 96 H 20 119/86 98 04/27/19 08:00 04/27/19 08:00 04/27/19 08:00 04/27/19 08:00 04/27/19 08:00 - Medications Medications: Current Medications Acetaminophen (Tylenol 325mg Tab) 650 mg PO Q6 PRN PRN Reason: Fever >100.4 F Last Admin: 04/21/19 14:09 Dose: 650 mg Ciprofloxacin (Cipro) 500 mg PO BID [facility]; Protocol Last Admin: 04/27/19 09:40 Dose: 500 mg Heparin Sodium (Porcine) (Heparin) 5,000 units SC BID [facility] Last Admin: 04/19/19 17:27 Dose: Not Given Ibuprofen (Motrin Tab) 600 mg PO Q6 PRN PRN Reason: Pain, moderate (4-7) Last Admin: 04/19/19 21:15 Dose: 600 mg Sodium Hypochlorite (Dakins Solution 0.25%) 0 ml TOP DAILY [facility] Last Admin: 04/27/19 10:00 Dose: Not Given - Labs Labs: 04/26/19 11:11 04/26/19 07:29 PT 16.8 SECONDS (9.7-12.2) H 04/19/19 00:46 INR 1.5 04/19/19 00:46 APTT 39.2 SECONDS (21-34) H 04/19/19 00:46 - Constitutional Appears: Well, Non-toxic, No Acute Distress - Extremities Exam Extremities Exam: absent: Calf Tenderness Additional comments: B/L Lower extremity focused exam: VASC: DP/PT pulses are 1/4 B/L. Temperature gradient is warm to warm from proximal to distal. +2 pitting pedal edema noted B/L from tibial tuberosity to digits. NEURO: protective sensation grossly intact. DERM: extensive chronic venous stasis ulcers noted circumferentially to bilateral lower extremities. Ulcerations extend down to the subcutaneous layer with mixed fibrogranular wound base, positive malodor but less than yesterday, no drainage, no purulence, no probe to bone, no tunneling or tracking noted. No maggots noted today, with significant interdigital macerationa and signs of trench foot also noted with maceration to the feet and posterior heels (improving) MSK: no tenderness to palpation of bilateral lower extremities. MMT 5/5 to all groups. Assessment and Plan - Assessment and Plan (Free Text) Assessment: 48 y/o male with bilateral lower extremity chronic venous stasis ulcerations, infested with maggots- improving (no maggots detected today) Plan: Patient seen and evaluated at bedside Discussed plan with Dr. Marques Charts, labs and vitals reviewed: Afebrile, No leukocytosis Cleansed ulceration with saline solution, pat dry and applied DSD RLE xray reveals acute periosteal reaction of mid to distal tibia, consistent with acute osteomyelitis. Wound cultures B/L lower extremities- Pseudomonas aeruginosa ESR 110, CRP >15; suspicious for acute process Bone scan- Impression Findings consistent with severe cellulitis right lower extremity compared to left. No compelling evidence for acute osseous process. Degenerative changes primarily affecting the knees. C/w abx per infectious disease Will continue local wound care at this time No surgical intervention by podiatry Podiatry will continue to follow up the patient while in house Upon discharge, patient to follow up with Dr. Marques in his office within 1 week of discharge Patient to keep dressing clean, dry and intact
[2019-04-28 08:07] VITALS: BP 130/86; PULSE 83; TEMP 97.9; O2SAT 99
[2019-04-28] MEDS: Dakin's Topical 0.25%-Half Strength (480 ml) TOP SCH (09:10)
--- NOTE | 2019-04-28 11:04 | CP.PCM.PN ---
Subjective - Date & Time of Evaluation Date of Evaluation: 04/28/19 Time of Evaluation: 11:03 - Subjective Subjective: CLINICALLY IMPROVING ULCERS IN LEG BETTER WITH LESS MALODOR C/S PEUDOMONAS IV AB AND LOCAL WOUND CARE Objective - Vital Signs/Intake and Output Vital Signs (last 24 hours): Temp Pulse Resp BP Pulse Ox 97.9 F 83 20 130/86 99 04/28/19 08:00 04/28/19 08:00 04/28/19 08:00 04/28/19 08:00 04/28/19 08:00 - Medications Medications: Current Medications Acetaminophen (Tylenol 325mg Tab) 650 mg PO Q6 PRN PRN Reason: Fever >100.4 F Last Admin: 04/21/19 14:09 Dose: 650 mg Ciprofloxacin (Cipro) 500 mg PO BID [facility]; Protocol Last Admin: 04/28/19 09:11 Dose: 500 mg Heparin Sodium (Porcine) (Heparin) 5,000 units SC BID [facility] Last Admin: 04/19/19 17:27 Dose: Not Given Ibuprofen (Motrin Tab) 600 mg PO Q6 PRN PRN Reason: Pain, moderate (4-7) Last Admin: 04/19/19 21:15 Dose: 600 mg Sodium Hypochlorite (Dakins Solution 0.25%) 0 ml TOP DAILY [facility] Last Admin: 04/28/19 09:10 Dose: Not Given - Labs Labs: 04/26/19 11:11 04/26/19 07:29 PT 16.8 SECONDS (9.7-12.2) H 04/19/19 00:46 INR 1.5 04/19/19 00:46 APTT 39.2 SECONDS (21-34) H 04/19/19 00:46 Assessment and Plan (1) Trench feet Status: Acute (2) Cellulitis Status: Acute (3) Chronic wound of extremity Status: Acute (4) Venous stasis dermatitis of both lower extremities Status: Acute
--- NOTE | 2019-04-29 12:44 | CP.PCM.PN ---
Subjective - Date & Time of Evaluation Date of Evaluation: 04/29/19 Time of Evaluation: 12:42 - Subjective Subjective: Homeless patient presents with severe malodorous legs, complaining of pain. States he has chronic venous stasis, as been seen here for similar complaints in the past THE WOUND ALSO HAD MAGGOTS AND KILLED BY H2O2 BOTH FEET APPEARS TRENCH FEET AFTER EXTENSIVE LOCAL WASHING AND CLEANING WITH H2O2 AND IV AB , WOUNDS APPEARED TO BE HEALING WITH LESS ODOR C/S PEUDOMONAS MRI N/A DUE TO PHOBIA AND UNABLE STAY STEADY PT WALKED OUT OF HOSPITAL AMA WITHOUT RX Objective - Vital Signs/Intake and Output Vital Signs (last 24 hours): Temp Pulse Resp BP Pulse Ox 97.9 F 83 20 130/86 99 04/28/19 08:00 04/28/19 08:00 04/28/19 08:00 04/28/19 08:00 04/28/19 08:00 - Labs Labs: 04/26/19 11:11 04/26/19 07:29 PT 16.8 SECONDS (9.7-12.2) H 04/19/19 00:46 INR 1.5 04/19/19 00:46 APTT 39.2 SECONDS (21-34) H 04/19/19 00:46 Assessment and Plan (1) Trench feet Status: Acute (2) Cellulitis Status: Acute (3) Chronic wound of extremity Status: Acute (4) Venous stasis dermatitis of both lower extremities Status: Acute
== END 2019-04-28 17:38 | disposition left against medical advice (07) | DRG 543 ==
LOC: C.ER 19:53 → C.5S 04-19 02:41
PROVIDERS: ADMIT Internal Medicine Cardiovascular Disease; ATTEND Internal Medicine Cardiovascular Disease
DX: I87.2 Venous insufficiency (chronic) (peripheral) (principal); M86.161 Other acute osteomyelitis, right tibia and fibula; F20.9 Schizophrenia, unspecified; E11.621 Type 2 diabetes mellitus with foot ulcer; L97.818 Non-pressure chronic ulcer of other part of right lower leg with other specified severity; L97.828 Non-pressure chronic ulcer of other part of left lower leg with other specified severity; L03.116 Cellulitis of left lower limb; L03.115 Cellulitis of right lower limb; E11.69 Type 2 diabetes mellitus with other specified complication; B87.1 Wound myiasis; Z79.4 Long term (current) use of insulin; T69.022A Immersion foot, left foot, initial encounter; T69.021A Immersion foot, right foot, initial encounter; Z59.0 Homelessness; F32.9 Major depressive disorder, single episode, unspecified; X31.XXXA Exposure to excessive natural cold, initial encounter